=== PATIENT | female | born 1955 | race Caucasian/White ===

== ENCOUNTER 2017-04-20 07:46 | Inpatient (IN) | payer BC ==
[2017-04-20 08:21] LABS: #Eosinphils 0.4 thou/uL (0.0-0.7); #Lymphocytes 2.1 thou/uL (1.20-3.40); #Monocytes 1.1 thou/uL (0.11-0.59); %Basophils 0.4 % (0.0-1.0); %Eosinophils 3.3 % (0.0-10.0); %Lymphocytes 17.9 % (21.0-51.0); %Monocytes 9.1 % (0.0-10.0); Hematocrit 44.4 % (36.0-47.0); Mean Platelet Volume 8.2 fL (7.4-10.4); White Blood Cell (WBC) Count 11.5 thou/uL (4.8-10.8)
[2017-04-20 08:36] LABS: Bilirubin Negative (Negative); Blood, Urine Negative (Negative); Glucose, Urine (Dipstick) >=1000 mg/dL (Negative); Ketone, Urine 40 mg/dL (Negative); Nitrite Negative (Negative); Protein, Urine (Dipstick) Negative (Neg-Trace); Urobilinogen 0.2 mg/dL (0.2-1.0)
[2017-04-20 08:41] LABS: Troponin I Less than 0.010 ng/mL (< 0.028)
[2017-04-20 08:42] LABS: ALT (SGPT) 15 U/L (8-55); AST (SGOT) 14 U/L (5-34); Alkaline Phosphatase 103 U/L (40-150); Anion Gap 23 mmol/L (10-20); BUN (Urea Nitrogen) 21 mg/dL (9.8-20.1); Bilirubin, Total 0.8 mg/dL (0.2-1.2); Calc. Creatinine Clearance 0 mL/min (70-130); Calcium 10.2 mg/dL (7.8-10.44); Carbon Dioxide 20 mmol/L (23-31); Chloride 95 mmol/L (98-107); Estimated GFR-MDRD 49; Globulin 3.3 g/dL (2.4-3.5); Protein, Total 7.4 g/dL (6.0-8.3)
[2017-04-20] MEDS ORDERED: Insulin Regular 300 UNITS/3 ML VIAL ONE (08:58)
[2017-04-20] MEDS ORDERED: Acetaminophen 325 MG TAB PO PRN (09:26)
[2017-04-20] MEDS ORDERED: Bisacodyl 5 MG TAB PO PRN (09:26)
[2017-04-20] MEDS ORDERED: Acetaminophen 650 MG Suppository PR PRN (09:26)
[2017-04-20] MEDS ORDERED: NS 0.9% w/ 20 MEQ KCL 1,000 ML IV PRN ×2 (09:26)
[2017-04-20] MEDS ORDERED: Zolpidem Tartrate 5 MG TAB PO PRN ×2 (09:26→14:07)
[2017-04-20] MEDS ORDERED: CCU Electrolyte Replacement 1 EACH IVPB ONE (09:26)
[2017-04-20] MEDS ORDERED: D5 1/2 NS w/20 mEq KCL 1,000 ML IV PRN (09:26)
[2017-04-20] MEDS ORDERED: Dextrose 5 %-0.45 % NaCl 1,000 ML IV PRN (09:26)
[2017-04-20] MEDS ORDERED: Sodium Chloride 0.9% 1,000 ML IV PRN ×4 (09:26)
[2017-04-20] MEDS ORDERED: Potassium Phosphate 9 MMOL in Sodium Chloride 0.9% 100 ML IVPB PRN (09:32)
[2017-04-20] MEDS ORDERED: CCU ELECTROLYTE REPLACEMENT PROTOCOL FS PRN (09:32)
[2017-04-20] MEDS ORDERED: Potassium Phosphate 12 MMOL in Sodium Chloride 0.9% 250 ML 250 ML IV PRN (09:32)
[2017-04-20] MEDS ORDERED: Magnesium Oxide 400 MG TAB PO PRN ×2 (09:32)
[2017-04-20] MEDS ORDERED: Potassium Phosphate 15 MMOL in Sodium Chloride 0.9% 250 ML 250 ML IV PRN (09:32)
[2017-04-20] MEDS ORDERED: Potassium Chloride 40 MEQ in Sodium Chloride 0.9% 250 ML 250 ML IVPB PRN (09:32)
[2017-04-20] MEDS ORDERED: Potassium Chloride 20 MEQ TAB PO PRN (09:32)
[2017-04-20] MEDS ORDERED: Magnesium 2 GM/NS 0.9% 100 ML 2 GM in Premix Bag 1 BAG IVPB PRN (09:32)
[2017-04-20] MEDS ORDERED: Potassium Chloride 40 MEQ in Premix Bag 1 BAG IVPB PRN (09:32)
[2017-04-20 11:38] LABS: Troponin I Less than 0.010 ng/mL (< 0.028)
[2017-04-20 12:00] LABS: Anion Gap 23 mmol/L (10-20); BUN (Urea Nitrogen) 20 mg/dL (9.8-20.1); Calc. Creatinine Clearance 0 mL/min (70-130); Calcium 9.7 mg/dL (7.8-10.44); Carbon Dioxide 20 mmol/L (23-31); Chloride 96 mmol/L (98-107); Estimated GFR-MDRD 48
[2017-04-20] MEDS ORDERED: Dextrose 50% Abboject 50 ML SYRINGE ONE (13:05)
--- NOTE | 2017-04-20 13:33 | HP ---
PRIMARY CARE PHYSICIAN: Dr. Michael Green. CHIEF COMPLAINT: Chest pain. HISTORY OF PRESENT ILLNESS: Ms. Llamas is a pleasant 62-year-old lady who was seen at [facility] on 04/20/2017. She has a history of diabetes mellitus type 2 and uses an insulin pump. She reports that she has bee n using the insulin pump for several years, and her blood sugars are usually well controlled at home. Today morning, she was driving to work when she felt diaphoretic and tremulous. She also reports p ain across her upper chest. She describes it as sensation of tightness, nonradiating, 9/10 at its wo rst, lasted 30 minutes. No known aggravating or relieving factors. She reports that it was accompan ied by nausea and diaphoresis. She denies any lightheadedness. She also reports that her lips felt numb, but this has resolved. Currently, chest pain has resolved as well. She checked her blood sugars when she developed the symptoms and found that it was high, in the 550s. REVIEW OF SYSTEMS: The following complete review of systems was negative, unless otherwise mentioned in the HPI or below: Constitutional: Weight loss or gain, sense of well-being, ability to conduct usual activities, exerc ise tolerance. Skin/Breast: Rash, itching, changes in hair growth or loss, nail changes, breast lumps, tenderness, swelling, nipple discharge. Eyes: Vision, double vision, tearing, blind spots, pain. ENT/Mouth: Headaches (location, time of onset, duration, precipitating factors), vertigo, lightheade dness, injury. Vision, double vision, tearing, blind spots, pain, nose bleeding, colds, obstruction, discharge, dental difficulties, gingival bleeding, dentures, neck stiffness, pain, tenderness, dong s in thyroid or other areas. Cardiovascular: Precordial pain, substernal distress, palpitations, syncope, dyspnea on exertion, or thopnea, nocturnal paroxysmal dyspnea, edema, cyanosis, hypertension, heart murmurs, varicosities, ph lebitis, claudication. Respiratory: Pain, shortness of breath, wheezing, stridor, cough, hemoptysis, fever or night sweats. Gastrointestinal: Poor appetite, dysphagia, indigestion, abdominal pain, heartburn, eructation, naus ea, vomiting, hematemesis, jaundice, constipation, or diarrhea, abnormal stools (surjit-colored, tarry, bloody, greasy, foul smelling), flatulence, hemorrhoids, recent changes in bowel habits. Genitourinary: Urgency, frequency, dysuria, nocturia, hematuria, polyuria, oliguria, unusual (or devin nge in) color of urine, stones, hesitancy, change in size of stream, dribbling, acute retention or in continence, libido, potency. Musculoskeletal: Pain, swelling, redness or heat of muscles or joints, limitation, of motion, muscul ar weakness, atrophy, cramps. Neurologic/Psychiatric: Convulsions, paralyses, tremor, incoordination, paresthesias, difficulties w ith memory of speech, sensory or motor disturbances, or muscular coordination (ataxia, tremor), emoti onal problems, anxiety, depression, previous psychiatric care, unusual perceptions, hallucinations. Allergy/Immunologic: Skin rash, anemia, bleeding tendency, polydipsia, polyuria, intolerance to heat or cold. PAST MEDICAL HISTORY: Significant for diabetes mellitus type 2, peripheral vascular disease, and rig ht leg deep vein thrombosis. PAST SURGICAL HISTORY: Significant for a rectocele repair, insulin pump placement, appendectomy, hys terectomy, and tonsillectomy. PSYCHIATRIC HISTORY: None. SOCIAL HISTORY: Occasional alcohol use, patient denies tobacco use or recreational drug use. FAMILY HISTORY: No family history of premature coronary artery disease. She does report that her mo ther had heart disease. ALLERGIES: No known allergies. CURRENT MEDICATIONS: Include leflunomide 20 mg daily, metformin 500 mg 2 times a day, folic acid 2 m g daily, Pristiq 50 mg daily, Invokana 300 mg daily, baclofen 10 mg daily, duloxetine 30 mg daily, Jennifer nesta 3 mg at bedtime as needed, Lastacaft eyedrops, and Nexium 20 mg daily. PHYSICAL EXAMINATION: GENERAL: Ms. Llamas is awake and alert, not in acute distress. VITAL SIGNS: Blood pressure is 129/63, pulse is 98. She is breathing at rate of 20 and saturating 9 7% on room air. She is afebrile. EYES: No scleral icterus, no conjunctival pallor. ENT: Dry mucosal membranes, no oropharyngeal erythema or exudate. NECK: Supple, nontender, normal range of movement. Trachea is midline. RESPIRATORY: Accessory muscles of breathing are not active. Chest wall movements are symmetric bila terally. LUNGS: Clear to auscultation without wheeze, rhonchi, or crepitations. CARDIOVASCULAR: S1 and S2 are heard, regular. Peripheral pulses are palpable. No carotid bruit, no pericardial rub. ABDOMEN: Soft, nontender, bowel sounds are heard, no hepatomegaly, no splenomegaly. NEUROLOGIC: Cranial nerves II-XII are intact. Deep tendon reflexes are 2+. MUSCULOSKELETAL: Power is 5/5 in all 4 extremities. Normal range of movement at all major extremity joints. SKIN: No rashes or subcutaneous nodules. LYMPHATIC: No cervical lymphadenopathy. PSYCHIATRIC: Normal mood, normal affect, patient is oriented to person, place, and time. LABORATORY DATA: Ms. Llamas labs and investigations were reviewed. I reviewed her electrocardiogram, which shows normal sinus rhythm, no ST changes to suggest an acute coronary syndrome. I also review ed her chest x-ray, which does not reveal any pulmonary infiltrates. Laboratory investigation showed leukocytosis with 11,500 white cells, of which 69.4% are neutrophils, normal hemoglobin, normal plat elet count, hyponatremia with sodium of 133, hyperkalemia with potassium of 5.4, elevated creatinine of 1.11, elevated anion gap of 23, decreased carbon dioxide level of 20, and an unremarkable liver pr ofile. Troponin I is negative x2. Urinalysis is positive for glucose and ketones. She has an eleva hernán beta hydroxybutyrate level of 2.85. ASSESSMENT AND PLAN: Mr. Llamas is a pleasant 62-year-old lady who was seen at [facility] on 04/20/2017. Her problem list includes: 1. Diabetic ketoacidosis. Ms. Llamas is presenting with diabetic ketoacidosis. She will be admitted to the IM and treated with intravenous fluids and insulin per protocol. The etiology of DKA is un clear. She reports having some sinus infections in the past, over the last 3 months that could be a possible trigger. She certainly does not have any evidence of urinary tract infection or respiratory infection. 2. Chest pain: She does have significant cardiac risk factors. We will order stress test to rule o ut cardiac causes of reason for her chest pain. 3. Peripheral vascular disease: Stable, continue home medications. 4. Hyponatremia: Mild, recheck labs. 5. Hyperkalemia: Likely due to diabetic ketoacidosis. Monitor potassium levels. No EKG evidence o f hyperkalemia. 6. Acute kidney injury: Likely due to diabetic ketoacidosis, recheck creatinine level. Many thanks for allowing me to participate in Ms. Farhad vizcaino. Please feel free to contact me with an y questions or concerns. LEVEL OF RISK: High. LEVEL OF COMPLEXITY: High.
[2017-04-20 14:41] LABS: Anion Gap 14 mmol/L (10-20); BUN (Urea Nitrogen) 16 mg/dL (9.8-20.1); Calc. Creatinine Clearance 0 mL/min (70-130); Calcium 9.1 mg/dL (7.8-10.44); Carbon Dioxide 25 mmol/L (23-31); Chloride 106 mmol/L (98-107); Estimated GFR-MDRD 77
[2017-04-20 14:49] LABS: Troponin I Less than 0.010 ng/mL (< 0.028)
[2017-04-20 15:00] VITALS: BMI 29.3
[2017-04-20 20:05] LABS: Anion Gap 10 mmol/L (10-20); BUN (Urea Nitrogen) 19 mg/dL (9.8-20.1); Calc. Creatinine Clearance 102 mL/min (70-130); Carbon Dioxide 29 mmol/L (23-31); Chloride 105 mmol/L (98-107); Estimated GFR-MDRD 75
[2017-04-20] MEDS ORDERED: Atorvastatin Calcium 10 MG TAB PO SCH (21:00)
[2017-04-21 04:57] LABS: #Basophils 0.1 thou/uL (0.0-0.2); #Eosinphils 0.3 thou/uL (0.0-0.7); #Lymphocytes 2.1 thou/uL (1.20-3.40); #Monocytes 0.8 thou/uL (0.11-0.59); #Neutrophils 4.7 thou/uL (1.40-6.50); %Basophils 0.7 % (0.0-1.0); %Lymphocytes 26.4 % (21.0-51.0); %Monocytes 9.9 % (0.0-10.0); Hematocrit 36.6 % (36.0-47.0); Mean Platelet Volume 6.8 fL (7.4-10.4); Red Blood Cell (RBC) Count 3.64 mill/uL (4.20-5.40); White Blood Cell (WBC) Count 7.9 thou/uL (4.8-10.8)
[2017-04-21 05:07] LABS: Anion Gap 10 mmol/L (10-20); BUN (Urea Nitrogen) 14 mg/dL (9.8-20.1); Calc. Creatinine Clearance 125 mL/min (70-130); Calcium 8.7 mg/dL (7.8-10.44); Carbon Dioxide 25 mmol/L (23-31); Chloride 110 mmol/L (98-107); Estimated GFR-MDRD Greater than 90
[2017-04-21] MEDS ORDERED: Dextrose 50% Abboject 50 ML SYRINGE IVP PRN (05:13)
[2017-04-21] MEDS ORDERED: Dextrose 5% in Water 1,000 ML IV PRN (05:13)
[2017-04-21] MEDS ORDERED: Levothyroxine Sodium 125 MCG TAB PO SCH (06:00)
[2017-04-21] MEDS ORDERED: Leflunomide 10 mg Tablet PO SCH (09:00)
[2017-04-21] MEDS ORDERED: Folic Acid 1 MG TAB PO SCH (09:00)
[2017-04-21] MEDS ORDERED: Amlodipine 5 MG TAB PO SCH (09:00)
[2017-04-21] MEDS ORDERED: Venlafaxine XR 37.5 MG CAP PO SCH (09:00)
[2017-04-21] MEDS ORDERED: Enoxaparin Sodium 40 MG/0.4 ML SYRINGE SC SCH (09:00)
[2017-04-21] MEDS ORDERED: Valsartan 80 MG TAB PO SCH (09:00)
--- NOTE | 2017-04-21 10:27 | NM ---
NUCLEAR MEDICINE CARDIAC SPECT WITH EF AND WALL MOTION: HISTORY: A 62-year-old female with chest pain. History of peripherovascular disease, diabetes mellitus, and D VT. Adenosine sestamibi study was performed. The patient was injected with 30 mCi Technetium 99m sestamibi intravenously for stress imaging and th e patient was injected with 28.0 mCi Technetium 99m sestamibi intravenously for resting images. Multiple SPECT images in the short axis, vertical long axis, and horizontal long axis demonstrate no scan evidence for infarct or ischemia. TID 1.06. LHR 0.34. EDV 92 mL. EF is 75%. MYOCARDIAL PERFUSION WALL MOTION: Wall motion is normal. IMPRESSION: Unremarkable cardiac SPECT with ejection fraction and wall motion. POS: [facility]
[2017-04-21] MEDS ORDERED: ISOVUE-370 76%-LOCM 1 ML ONE (13:57)
[2017-04-21] MEDS ORDERED: Baclofen 10 MG TAB PO PRN (14:37)
[2017-04-21] MEDS ORDERED: ESTRADIOL 0.1 MG/24 HR TD SCH (16:00)
[2017-04-21] MEDS ORDERED: Zolpidem Tartrate 5 MG TAB PO PRN (16:11)
[2017-04-21] MEDS ORDERED: ADENOSINE 60 MG/20 ML VIAL ONE (17:09)
[2017-04-21 18:01] VITALS: BP 133/58; TEMP 97.8
--- NOTE | 2017-04-21 18:52 | CT ---
HISTORY: Chest tightness, chest pain, difficulty breathing. Contrast enhanced CTA of the chest is performed. 2D and 3D reconstructed images performed on an [employer] 3D workstation. Images demonstrate coronary artery calcifications. There is calcification also seen in the aorta. No evidence of definite pulmonary artery parenchymal lesions seen. No evidence of filling defects see n in the pulmonary arteries to suggest pulmonary emboli. No evidence of pleural or pericardial effusions seen. There is an area of hypodensity measuring approximately 2.6 cm in the spleen, compatible with a splen ic cyst. Numerous healed left sided upper rib fractures are present. IMPRESSION: 1. Coronary artery calcification. 2. No evidence of pulmonary emboli. POS: [facility]
--- NOTE | 2017-04-21 23:59 | DIS ---
DATE OF ADMISSION: 04/20/2017 DATE OF DISCHARGE: 04/21/2017 PRIMARY CARE PHYSICIAN: Dr. Michael Green. DISCHARGE DIAGNOSES: 1. Diabetic ketoacidosis. 2. Chest pain, resolved. CONDITION OF PATIENT AT THE TIME OF DISCHARGE: Stable. I assessed Ms. Llamas on the day of discharge . She denies any chest pain or shortness of breath. Her vital signs are stable. S1 and S2 are hear d, regular. Lungs are clear to auscultation bilaterally. DISCHARGE MEDICATIONS: She is advised to hold metformin for 48 hours since she received contrast for CT angiogram of the chest. Her discharge medications include Lastacaf 3 mL daily, baclofen 10 mg as needed, Invokana 300 mg daily, Pristiq 25 mg daily, estradiol 0.1 mg transdermal twice weekly, Lunes ta 3 mg at bedtime, folic acid 2 mg daily, leflunomide 20 mg daily, Synthroid 150 mcg daily, liothyro nine sodium 5 mcg daily, Diovan 160 mg daily, metformin to be started on 04/24/2017 and patient to co ntinue with her use of insulin pump. HOSPITAL COURSE: Ms. Llamas is a pleasant 62-year-old lady who was admitted to [facility] on 04/20/2017 for diabetic ketoacidosis as well as chest discomfort. Diabetic ketoacidos is, resolved on 04/20/2017 with intravenous insulin and intravenous fluids. She had nuclear stress t est, which was unremarkable with an ejection fraction of 75% and normal wall motion. She had a mildly elevated D-dimer. CT angiogram of the chest did not reveal any pulmonary embolism. She had old healed fractures as well as her splenic cyst. She is advised to follow up with her primary care provider in 3-5 days. On the day of discharge, she has a white count of 7900, hemoglobin 11.8 and platelet count 242,000. Sodium 141, potassium 3.8 and creatinine 0.63. Many thanks for allowing me to participate in your patient's care. Please feel free to contact me wi th any questions or concerns. DISCHARGE DESTINATION: Home. TOTAL AMOUNT OF TIME SPENT COORDINATING THIS DISCHARGE: 33 minutes.
[2017-04-22] MEDS ORDERED: Canagliflozin [Invokana] 300 MG PO SCH ×3 (06:00)
[2017-04-22] MEDS ORDERED: Liothyronine Sodium 5 MCG TAB PO SCH (06:00)
[2017-04-22] MEDS ORDERED: Valsartan 80 MG TAB PO SCH (09:00)
[2017-04-22] MEDS ORDERED: ALCAFTADINE EA EYE SCH (09:00)
--- NOTE | 2017-05-05 10:26 | STRESS ---
Acquisition Time: 2017-04-21 08:34:50 Total Exercise Time: 00:04:00 Test Indications: CHEST PAIN Medications: Protocol: ADENOSINE Max HR: 093 BPM 59% of Pred: 156 BPM Max BP: 120/054 mmHG Max Work Load: 1.0 METS RESTING ECG: NORMAL SINUS RHYTHM AT 68 BPM SYMPTOMS: CHEST PAIN, SHORTNESS OF BREATH, JAW PAIN NORMAL BP RESPONSE ECTOPY: RARE PVC'S ECG STRESS: NO SIGNIFICANT CHANGES INTERPRETATION: AWAIT NUCLEAR IMAGES FOR DEFINITIVE DIAGNOSIS Confirmed by KEELY XIAO ([id number]), assistant production editor CAMILLA FAROOQ ([id number]) on 05/05/2017 10:25:55 AM Referred By: MD Brittny YOUNG Confirmed By:KEELY XIAO
--- NOTE | 2017-05-09 17:03 | EKG ---
Test Reason : CHEST PAIN Blood Pressure : / mmHG Vent. Rate : 100 BPM Atrial Rate : 100 BPM P-R Int : 162 ms QRS Dur : 076 ms QT Int : 334 ms P-R-T Axes : 066 006 063 degrees QTc Int : 430 ms Normal sinus rhythm Possible Left atrial enlargement Borderline ECG Confirmed by IVELISSE PARKER ([id number]), content editor JOVANA LYNN ([id number]) on 05/09/2017 5:03:40 PM Referred By: Confirmed By:IVELISSE PARKER
== END 2017-04-21 18:12 | disposition home or self-care (01) | DRG 638 ==
LOC: ERS 07:46 → IMCU/EMU 09:18
PROVIDERS: ADMIT Internal Medicine; ATTEND Internal Medicine
PROC: 4A02XM4 Measurement of Cardiac Total Activity, External Approach (ICD-10-PCS; principal; 2017-04-21)
DX: E11.10 Type 2 diabetes mellitus with ketoacidosis without coma (principal); E87.1 Hypo-osmolality and hyponatremia; N17.9 Acute kidney failure, unspecified; I73.9 Peripheral vascular disease, unspecified; E87.5 Hyperkalemia; Z86.718 Personal history of other venous thrombosis and embolism; Z96.41 Presence of insulin pump (external) (internal); Z87.81 Personal history of (healed) traumatic fracture
CPT/HCPCS: 36415; 36416; 71275; 78452; 80048; 80053; 81003; 82010; 82553; 84484; 85025; 85379; 93005; 93017; 94760; 96361; 96374; 96375; A9500; J0153; J1815

== ENCOUNTER 2017-05-13 07:15 | Outpatient (CLI) | payer BC | END 2017-05-13 07:16 | disposition home or self-care (01) | LOC: BICMAMMO 07:15 | PROVIDERS: ATTEND Obstetrics & Gynecology | DX: Z12.31 Encounter for screening mammogram for malignant neoplasm of breast (principal) | CPT/HCPCS: 77063; 77067; G0202 ==

== ENCOUNTER 2018-05-22 06:04 | Emergency (ER) | payer MEDICARE ==
[2018-05-22] MEDS ORDERED: Ondansetron PF 4 MG/2 ML Vial ONE ×2 (06:33→07:17)
[2018-05-22 06:41] LABS: #Basophils 0.1 thou/uL (0.0-0.2); #Eosinphils 0.1 thou/uL (0.0-0.7); #Lymphocytes 1.5 thou/uL (1.20-3.40); #Monocytes 0.5 thou/uL (0.11-0.59); #Neutrophils 5.4 thou/uL (1.40-6.50); %Basophils 0.8 % (0.0-1.0); %Eosinophils 0.8 % (0.0-10.0); %Lymphocytes 20.2 % (21.0-51.0); %Monocytes 6.1 % (0.0-10.0); Hemoglobin 15.3 g/dL (12.0-16.0); Mean Corpuscular HGB CONC 31.3 g/dL (32.0-36.0); Mean Corpuscular Hemoglobin 30.1 pg (27.0-31.0); Mean Corpuscular Volume 96.1 fL (78.0-98.0); Mean Platelet Volume 7.4 fL (7.4-10.4); Platelet Count 285 thou/uL (130-400); RBC Distribution Width 12.6 % (11.5-14.5); Red Blood Cell (RBC) Count 5.07 mill/uL (4.20-5.40); White Blood Cell (WBC) Count 7.4 thou/uL (4.8-10.8)
[2018-05-22] MEDS ORDERED: Morphine 4 MG/ML VIAL ONE (06:48)
[2018-05-22 07:02] LABS: ALT (SGPT) 10 U/L (8-55); AST (SGOT) 14 U/L (5-34); Albumin 4.3 g/dL (3.4-4.8); Alkaline Phosphatase 77 U/L (40-150); Anion Gap 17 mmol/L (10-20); BUN (Urea Nitrogen) 11 mg/dL (9.8-20.1); Bilirubin, Total 0.7 mg/dL (0.2-1.2); Calc. Creatinine Clearance 0 mL/min (70-130); Calcium 10.3 mg/dL (7.8-10.44); Carbon Dioxide 21 mmol/L (23-31); Chloride 105 mmol/L (98-107); Estimated GFR-MDRD 83; Globulin 3.1 g/dL (2.4-3.5); Glucose 122 mg/dL (80-115); Lipase 20 U/L (8-78); Potassium 4.1 mmol/L (3.5-5.1); Protein, Total 7.4 g/dL (6.0-8.3); Sodium 139 mmol/L (136-145)
--- NOTE | 2018-05-22 09:36 | CT ---
CT ABDOMEN AND PELVIS WITH IV CONTRAST: Date: 05/22/18 HISTORY: Abdominal pain, vomiting. FINDINGS: There is a calcified granuloma at the right lung base. A small hiatal hernia is noted. The liver, spl een, pancreas, adrenal glands, and left kidney are normal. There is a 1.8 cm cyst in the right kidney . No calcified gallstones are seen. No free air, free fluid, or lymphadenopathy noted in the abdomen or pelvis. There are vascular calcifications without evidence of aneurysmal dilatation of the abdomin al aorta. There are degenerative changes in the spine. There is compression of L2 vertebral body. The re is levoscoliosis of the lumbar spine. The small bowel loops are not abnormally dilated. There is f ecal material in the colon. There is sigmoid diverticulosis without evidence of diverticulitis. IMPRESSION: 1. No acute process. 2. Small hiatal hernia. 3. Right renal cyst. 4. Sigmoid diverticulosis. 5. No evidence of small bowel obstruction. Discussed over the telephone with ER physician, Dr. Melissa Carbajal, at 0811 hours. CODE CR. POS: [facility]
--- NOTE | 2018-05-22 09:37 | RAD ---
PORTABLE CHEST ONE VIEW: 05/22/2018 6:44 a.m. HISTORY: Nausea and vomiting. COMPARISON: 05/05/2015 FINDINGS: The heart size is normal. The lungs are well expanded without focal areas of consolidation, pneumoth orax, or pleural effusions. There are postop changes and metallic hardware in the lower cervical spi ne. IMPRESSION: No acute process. POS: [facility]
== END 2018-05-22 09:13 | disposition home or self-care (01) ==
LOC: ERS 06:04
DX: R11.2 Nausea with vomiting, unspecified (principal); E11.9 Type 2 diabetes mellitus without complications; Z86.718 Personal history of other venous thrombosis and embolism; Z87.891 Personal history of nicotine dependence; Z79.899 Other long term (current) drug therapy; Z79.4 Long term (current) use of insulin
CPT/HCPCS: 71045; 74177; 80053; 82010; 83690; 84484; 85025; 93005; 96361; 96374; 96375; 96376; J2270; J2405

== ENCOUNTER 2018-05-28 07:03 | Outpatient (CLI) | payer MEDICARE, OTHER ==
--- NOTE | 2018-05-28 10:01 | ULT ---
ABDOMINAL ULTRASOUND: HISTORY: Abdominal pain. Nausea. FINDINGS: Real-time imaging of the upper abdomen shows a fairly normal appearing gallbladder. Questionable min imal sludge. No stones. No gallbladder wall thickening. The common duct is 5 mm. The liver measures 16 cm in length. No focal abnormalities. The spleen is 9 cm. The pancreas is obscured. Right and left kidneys are normal in size and not obstructed. There is a 1.5 cm right renal cyst incidentally noted. IMPRESSION: Small right renal cyst. Otherwise unremarkable examination. POS: [facility]
--- NOTE | 2018-05-28 15:15 | NM ---
NUCLEAR MEDICINE GASTRIC EMPTYING WITH MEAL: HISTORY: Nausea and vomiting, unspecified. COMPARISON: None. FINDINGS: The patient was given 2.1 mCi Technetium 99m sulfur colloid orally in egg. There is 45% emptying at 30 minutes, 75% emptying at 1 hour, and 96% emptying at 2 hours. There is 97% emptying at 3 hours an d 100% at 4 hours. IMPRESSION: No delayed gastric emptying. POS: [facility]
== END 2018-05-28 07:04 | disposition home or self-care (01) ==
LOC: ULT 07:03
DX: R11.2 Nausea with vomiting, unspecified (principal); R10.13 Epigastric pain; N28.1 Cyst of kidney, acquired
CPT/HCPCS: 76700; 78264; A9541

== ENCOUNTER 2020-02-17 09:22 | Outpatient (CLI) | payer MEDICARE ==
--- NOTE | 2020-02-17 10:09 | BD ---
EXAM: DEXA bone density examination HISTORY: 65-year-old postmenopausal female for screening COMPARISON: None FINDINGS: L1--bone mineral density 1.068 g/sq cm; T score 0.7 L2--bone mineral density 1.247 g/sq cm; T score 2.0 L3--bone mineral density 1.222 g/sq cm; T score 1.3 L4--bone mineral density 1.275 g/sq cm; T score 1.9 Total L1-L4--bone mineral density 1.205 g/sq cm; T score 1.4 Left femoral neck--bone mineral density0.638; T score -1.9 Total proximal left femur--bone mineral density 0.879; T score -0.5 IMPRESSION: Osteopenia. This patient has a 10 year WHO fracture risk of a major osteoporotic fracture of 13% and of a hip fracture of 2.0%.
== END 2020-02-17 09:23 | disposition home or self-care (01) ==
LOC: BICMAMMO 09:22
PROVIDERS: ATTEND Internal Medicine Rheumatology
DX: M81.0 Age-related osteoporosis without current pathological fracture (principal); M85.852 Other specified disorders of bone density and structure, left thigh
CPT/HCPCS: 77080

== ENCOUNTER 2020-03-18 02:37 | Inpatient (IN) | payer MEDICARE, OTHER ==
[2020-03-18] MEDS ORDERED: Ondansetron ODT 4 MG TAB ONE (02:40)
[2020-03-18] MEDS ORDERED: Ondansetron PF 4 MG/2 ML Vial ONE (02:40)
[2020-03-18] MEDS ORDERED: INSULIN REGULAR IN 0.9 % NACL 100 UNIT/100 ML BAG ONE (02:56)
[2020-03-18] MEDS ORDERED: Dextrose 5 %-0.45 % NaCl 1,000 ML IV PRN (03:12)
[2020-03-18] MEDS ORDERED: NS 0.9% w/ 20 MEQ KCL 1,000 ML IV PRN ×2 (03:12)
[2020-03-18] MEDS ORDERED: D5 1/2 NS w/20 mEq KCL 1,000 ML IV PRN (03:12)
[2020-03-18] MEDS ORDERED: Sodium Chloride 0.9% 1,000 ML IV PRN ×3 (03:12)
[2020-03-18] MEDS ORDERED: HUMULIN R 100 UNITS in Sodium Chloride 0.9% 100 ML IVPB SCH (03:15)
--- NOTE | 2020-03-18 03:21 | PDOC.HHP ---
Hospitalist HPI - History of Present Illness Abdominal pain History of Present Illness: 65-year-old woman with a history of type 1 diabetes, history of deep vein thrombosis, hypertension gastric ulcers presented to the emergency department at [facility] with a complaint of abdominal pain and high blood sugar. Patient is on insulin pump. She mentioned she given several boluses of insulin but still could not feel better and therefore presented to the ED. Patient was found to be in DKA at [facility] ED. Her pH was 7.2. Patient noted to have ketonuria of 3+. Her white cell count was also elevated and UA suggestive of the presence of UTI. Her insulin pump was discontinued, patient was given boluses of normal saline and started on insulin drip. She was also given a shot of IV Rocephin and transferred here for further management. Patient found to be lethargic in the ED, could hardly speak. She was complaining of nausea and stated she vomited multiple times. DKA protocol initiated in the ED. Patient is admitted to the CCU for further management. Hospitalist ROS - Review of Systems Other: Patient was complaining of abdominal pain. She denied any diarrhea. He denied any chest pain. Except as documented, all other systems reviewed and negative. - Medication Medications: Medication Instructions Recorded Confirmed Type Baclofen 10 mg PO ASDIR PRN 04/23/15 04/20/17 History Canagliflozin [Invokana] 300 mg PO QAM 04/23/15 04/20/17 History Desvenlafaxine Succinate [Pristiq] 25 mg PO QAM 04/23/15 04/20/17 History Estradiol [Vaishnavi] 0.1 mg TD .2X'S/WEEK 04/23/15 04/20/17 History Folic Acid [Folvite] 2 tab PO DAILY 04/23/15 04/20/17 History Leflunomide [Arava] 20 mg PO DAILY 04/23/15 04/20/17 History Levothyroxine Sodium [Synthroid] 150 mcg PO DAILY 04/23/15 04/20/17 History Alcaftadine [Lastacaft] 3 ml OP DAILY 04/20/17 04/20/17 History Eszopiclone [Lunesta] 3 mg PO HS 04/20/17 04/20/17 History Liothyronine Sodium 5 mcg PO DAILY 04/20/17 04/20/17 History Valsartan [Diovan] 160 mg PO DAILY 04/20/17 04/20/17 History Hospitalist History - Past Medical History Other Medical History: History of insulin-dependent diabetes, hyperlipidemia, history of DVT, gastroesophageal reflux, gastric ulcers, rectal prolapse, rheumatoid arthritis, compression fractures. - Past Surgical History Other Surgical History: Appendectomy, hiatal hernia surgery, hysterectomy, tonsillectomy. - Family History Family History: reports: diabetes mellitus - Social History Smoking Status: Former smoker Alcohol: reports: Occassional Drugs: reports: none - Exam General - other findings: Lethargic. Eye: PERRL, anicteric sclera ENT: normocephalic atraumatic, no oropharyngeal lesions, dry oral mucosa Neck: supple, symmetric, no JVD, no thyromegaly Heart: RRR (Tachycardic), no murmur, no gallops Respiratory: CTAB, no wheezes, no rales Gastrointestinal: soft, non-tender, normal bowel sounds Extremities: no cyanosis, no edema Skin: normal turgor, no rashes Neurological: cranial nerve grossly intact, no weakness, no focal deficits Musculoskeletal: normal tone, normal strength Psychiatric: normal affect, oriented to person, oriented to place Hospitalist Results - Labs Result Diagrams: 03/18/20 03:28 Lab results: WBC 18.2, hemoglobin 13.5 Sodium 150, potassium 5.3 bicarb 15 calcium 10.5 BUN 25 creatinine 0.6 pH 7.298 Urinalysis positive for nitrite ketones. COVID-19 negative Troponin negative. - Radiology Interpretation CT scan - abdomen Status: image reviewed by me, report reviewed by me (Diverticulosis of colon, L2 superior endplate compression deformity with 40% loss of vertebral body height.) Hospitalist H&P A/P - Problem (1) DKA (diabetic ketoacidoses) Code(s): E11.10 - TYPE 2 DIABETES MELLITUS WITH KETOACIDOSIS WITHOUT COMA Status: Acute (2) Hypernatremia Code(s): E87.0 - HYPEROSMOLALITY AND HYPERNATREMIA Status: Acute (3) UTI (urinary tract infection) Status: Acute (4) Metabolic encephalopathy Code(s): G93.41 - METABOLIC ENCEPHALOPATHY Status: Acute (5) Sepsis Code(s): A41.9 - SEPSIS, UNSPECIFIED ORGANISM Status: Acute - Plan Plan: Admit to CCU. Aggressive hydration with normal saline followed by D5 half-normal saline. D5 half-normal saline to help treat the hypernatremia. DKA protocol initiated with insulin drip. Start IV Rocephin for UTI Follow blood cultures and urine culture. Monitor BMP per DKA protocol, optimize electrolytes. Hold insulin pump. Patient is lethargic and confused so I cannot discuss advance care planning at this time.
[2020-03-18] MEDS ORDERED: Haloperidol Lactate 5 MG/ML VIAL ONE (03:57)
[2020-03-18 04:15] LABS: Anion Gap 21 mmol/L (10-20); BUN (Urea Nitrogen) 23 mg/dL (9.8-20.1); Calc. Creatinine Clearance 0 mL/min (70-130); Calcium 9.4 mg/dL (7.8-10.44); Carbon Dioxide 14 mmol/L (23-31); Chloride 109 mmol/L (98-107); Estimated GFR-MDRD 53; Glucose 279 mg/dL (80-115); Magnesium 2.4 mg/dL (1.6-2.6); Phosphorus 2.1 mg/dL (2.3-4.7); Potassium 4.1 mmol/L (3.5-5.1); Sodium 140 mmol/L (136-145)
[2020-03-18 05:38] VITALS: BMI 28.8
[2020-03-18] MEDS: cefTRIAXone\\ROCEPHIN 1 GM in Sodium Chloride 0.9% 100 ML IVPB SCH (05:55)
[2020-03-18] MEDS ORDERED: FLU VACC QS2020-21(65YR UP)/PF 240 MCG/0.7 ML SYRINGE IM ONE (06:45)
[2020-03-18 07:27] LABS: Anion Gap 16 mmol/L (10-20); BUN (Urea Nitrogen) 21 mg/dL (9.8-20.1); Calc. Creatinine Clearance 76 mL/min (70-130); Calcium 9.2 mg/dL (7.8-10.44); Carbon Dioxide 19 mmol/L (23-31); Chloride 112 mmol/L (98-107); Estimated GFR-MDRD 57; Glucose 236 mg/dL (80-115); Potassium 4.1 mmol/L (3.5-5.1); Sodium 143 mmol/L (136-145)
[2020-03-18 11:29] LABS: Anion Gap 13 mmol/L (10-20); BUN (Urea Nitrogen) 19 mg/dL (9.8-20.1); Calc. Creatinine Clearance 82 mL/min (70-130); Carbon Dioxide 20 mmol/L (23-31); Chloride 115 mmol/L (98-107); Estimated GFR-MDRD 62; Glucose 189 mg/dL (80-115); Potassium 4.2 mmol/L (3.5-5.1); Sodium 144 mmol/L (136-145)
[2020-03-18] MEDS ORDERED: Ondansetron PF 4 MG/2 ML Vial IVP PRN (12:17)
[2020-03-18] MEDS ORDERED: Insulin Glargine 15 UNITS in Pre-Filled Syringe 1 EACH SC SCH ×2 (12:32→14:15)
--- NOTE | 2020-03-18 12:37 | PDOC.HOSPP ---
- Subjective Encounter Date: 03/18/20 Encounter Time: 08:25 Subjective: lethargic, awakens easily says her throat is very dry no cough or nausea now - Objective Vital Signs & Weight: Vital Signs (12 hours) Temp Pulse Ox 03/18/20 12:00 98.4 F 03/18/20 07:02 100 03/18/20 07:00 98.7 F 03/18/20 05:10 100 Weight Admit Weight 189 lb 13.088 oz Weight 189 lb 13.088 oz Most Recent Monitor Data Heart Rate from ECG 101 NIBP 151/72 NIBP BP-Mean 98 Respiration from ECG 17 SpO2 100 I&O: 03/17/20 03/18/20 03/19/20 06:59 06:59 06:59 Intake Total 261.8 0 Output Total 120 1500 Balance 141.8 -1500 Result Diagrams: 03/18/20 11:00 Additional Labs: Accuchecks 03/18/20 03/18/20 03/18/20 11:01 09:00 06:37 POC Glucose 183 H 181 H 196 H 03/18/20 03/18/20 03/18/20 05:25 04:10 02:42 POC Glucose 221 H 233 H 277 H Hospitalist ROS - Medication Medications: Active Medications Generic Name Dose Route Start Last Admin Trade Name Freq PRN Reason Stop Dose Admin Potassium Chloride/Dextrose/Sod Cl 1,000 mls @ 250 mls/hr 03/18/20 03:12 03/18/20 08:31 D5 1/2 Ns W/20 Meq Kcl IV 1,000 mls .Q4H PRN Administration Step 4 of DKA Protocol Protocol Ceftriaxone Sodium 1 gm/ 100 mls @ 200 mls/hr 03/18/20 05:00 03/18/20 05:55 Sodium Chloride IVPB 100 mls Q24HR HAL Administration Ondansetron HCl 4 mg 03/18/20 12:17 03/18/20 12:28 Ondansetron Pf 4 Mg/2 Ml Vial IVP 4 mg Q4H PRN Administration Nausea/Vomiting Sodium Chloride 10 ml 03/18/20 09:00 03/18/20 08:54 Flush - Normal Saline 10 Ml Syringe IVF 10 ml Q12HR HAL Administration - Exam General Appearance: ill appearing Eye: anicteric sclera ENT: no oropharyngeal lesions, dry oral mucosa Neck: supple, no JVD Heart: RRR, no murmur Respiratory: no wheezes, no rales, rhonchi Gastrointestinal: soft, non-tender, non-distended, normal bowel sounds, no rigidity Extremities: no cyanosis, no edema Neurological: cranial nerve grossly intact, no focal deficits Psychiatric: A&O x 3 Hosp A/P (1) DKA (diabetic ketoacidoses) Code(s): E11.10 - TYPE 2 DIABETES MELLITUS WITH KETOACIDOSIS WITHOUT COMA Status: Resolved Qualifiers: Diabetes mellitus type: type 2 Diabetes mellitus complication detail: without coma Qualified Code(s): E11.10 - Type 2 diabetes mellitus with ketoacidosis without coma (2) Polypharmacy Code(s): Z79.899 - OTHER FDC (CURRENT) DRUG THERAPY Status: Chronic (3) Metabolic encephalopathy Code(s): G93.41 - METABOLIC ENCEPHALOPATHY Status: Resolved (4) Sepsis Code(s): A41.9 - SEPSIS, UNSPECIFIED ORGANISM Status: Suspected Qualifiers: Sepsis type: sepsis due to unspecified organism Sepsis acute organ dysfunction status: without acute organ dysfunction Qualified Code(s): A41.9 - Sepsis, unspecified organism (5) UTI (urinary tract infection) Status: Acute Qualifiers: Urinary tract infection type: acute cystitis Hematuria presence: without hematuria Qualified Code(s): N30.00 - Acute cystitis without hematuria - Plan continue ceftriaxone, await cultures gap is closing, dka is resolving continue iv fluids and home meds from tomorrow iv fluids oral diet hemostable may tx to medical floor if more awake and oriented
[2020-03-18 12:46] LABS: SARS-CoV-2 MS2 Positive; SARS-CoV-2 N Gene Negative; SARS-CoV-2 S Gene Negative; SARS-CoV-2 by NAA Not Detected (NotDetected); SARS-CoV-2 orf1ab Negative
[2020-03-18] MEDS ORDERED: Dextrose 50% Abboject 50 ML SYRINGE SLOW IVP PRN (12:47)
[2020-03-18] MEDS ORDERED: HumaLOG 300 UNITS/3 ML VIAL SC PRN (12:47)
[2020-03-18] MEDS ORDERED: Dextrose 5% in Water 1,000 ML IV PRN (12:47)
[2020-03-18] MEDS ORDERED: Morphine 2 MG/ML VIAL SLOW IVP PRN (16:42)
[2020-03-18] MEDS: HumaLOG 300 UNITS/3 ML VIAL SC PRN (17:25)
[2020-03-18] MEDS: Dicyclomine 20 MG TAB PO PRN (17:25)
[2020-03-18] MEDS: Acetaminophen 325 MG TAB PO PRN (22:40)
[2020-03-18] MEDS: Ondansetron PF 4 MG/2 ML Vial IVP PRN (22:40)
[2020-03-18] MEDS: Mag-Al Plus 1200 MG/1200 MG/120 MG/30 ML UDCUP PO PRN (22:44)
[2020-03-18] MEDS: Sodium Chloride 0.9% 1,000 ML IV SCH (22:46)
[2020-03-19] MEDS: Levothyroxine 150 MCG TAB PO SCH (05:16)
[2020-03-19] MEDS: cefTRIAXone\\ROCEPHIN 1 GM in Sodium Chloride 0.9% 100 ML IVPB SCH (05:16)
[2020-03-19] MEDS: HumaLOG 300 UNITS/3 ML VIAL SC PRN ×3 (05:17→17:27)
[2020-03-19 06:30] LABS: Anion Gap 21 mmol/L (10-20); BUN (Urea Nitrogen) 19 mg/dL (9.8-20.1); Calc. Creatinine Clearance 86 mL/min (70-130); Calcium 8.4 mg/dL (7.8-10.44); Carbon Dioxide 11 mmol/L (23-31); Chloride 105 mmol/L (98-107); Estimated GFR-MDRD 66; Glucose 225 mg/dL (80-115); Potassium 4.4 mmol/L (3.5-5.1); Sodium 133 mmol/L (136-145)
--- NOTE | 2020-03-19 09:21 | PDOC.HOSPP ---
- Objective Vital Signs & Weight: Vital Signs (12 hours) Temp Pulse Resp BP Pulse Ox 03/19/20 08:33 98.2 F 93 18 120/64 99 03/18/20 23:47 99.7 F H 103 H 20 146/76 H 97 Weight Admit Weight 189 lb 13.088 oz Weight 189 lb 13.088 oz Most Recent Monitor Data Heart Rate from ECG 97 NIBP 167/82 NIBP BP-Mean 110 Respiration from ECG 19 SpO2 100 I&O: 03/18/20 03/19/20 03/20/20 06:59 06:59 06:59 Intake Total 261.8 2292 Output Total 120 1800 Balance 141.8 492 Result Diagrams: 03/19/20 05:35 Additional Labs: Accuchecks 03/19/20 03/18/20 03/18/20 05:05 20:17 11:01 POC Glucose 224 H 170 H 183 H Hospitalist ROS - Medication Medications: Active Medications Generic Name Dose Route Start Last Admin Trade Name Freq PRN Reason Stop Dose Admin Acetaminophen 650 mg 03/18/20 15:32 03/18/20 22:40 Acetaminophen 325 Mg Tab PO 650 mg Q6H PRN Administration pain/fever Al Hydroxide/Mg Hydroxide 30 ml 03/18/20 16:41 03/18/20 22:44 Mag-Al Plus 1200 Mg/1200 Mg/120 Mg/30 Ml Udcup PO 30 ml Q6H PRN Administration Heartburn or Indigestion Dicyclomine HCl 20 mg 03/18/20 16:41 03/18/20 17:25 Dicyclomine 20 Mg Tab PO 20 mg QID PRN Administration abdominal pain Ceftriaxone Sodium 1 gm/ 100 mls @ 200 mls/hr 03/18/20 05:00 03/19/20 05:16 Sodium Chloride IVPB 100 mls Q24HR HAL Administration Sodium Chloride 1,000 mls @ 100 mls/hr 03/18/20 12:47 03/18/20 22:46 Normal Saline 0.9% IV 1,000 mls .Q10H HAL Administration Insulin Human Lispro 0 units 03/18/20 12:47 03/19/20 05:17 Humalog 300 Units/3 Ml Vial SC 4 units .MODERATE SLIDING SC PRN Administration Moderate Correctional Scale Levothyroxine Sodium 150 mcg 03/19/20 06:00 03/19/20 05:16 Levothyroxine 150 Mcg Tab PO 150 mcg 0600 HAL Administration Morphine Sulfate 2 mg 03/18/20 16:42 03/18/20 23:57 Morphine 2 Mg/Ml Vial SLOW IVP 2 mg Q4H PRN Administration Severe Pain (7-10) Ondansetron HCl 4 mg 03/18/20 16:41 03/18/20 22:40 Ondansetron Pf 4 Mg/2 Ml Vial IVP 4 mg Q6H PRN Administration Nausea/Vomiting Hosp A/P (1) Renal cyst Code(s): N28.1 - CYST OF KIDNEY, ACQUIRED Status: Acute (2) Diverticulosis Code(s): K57.90 - DVRTCLOS OF INTEST, PART UNSP, W/O PERF OR ABSCESS W/O BLEED Status: Acute (3) DKA (diabetic ketoacidoses) Code(s): E11.10 - TYPE 2 DIABETES MELLITUS WITH KETOACIDOSIS WITHOUT COMA Status: Resolved Qualifiers: Diabetes mellitus type: type 2 Diabetes mellitus complication detail: without coma Qualified Code(s): E11.10 - Type 2 diabetes mellitus with ketoacidosis without coma
[2020-03-19] MEDS: Liothyronine Sodium 5 MCG TAB PO SCH (09:23)
[2020-03-19] MEDS: Acetaminophen 325 MG TAB PO PRN ×2 (09:23→16:09)
[2020-03-19] MEDS: Ondansetron PF 4 MG/2 ML Vial IVP PRN ×2 (09:23→17:26)
[2020-03-19] MEDS: Sodium Chloride 0.9% 1,000 ML IV SCH ×2 (09:25→20:35)
[2020-03-19] MEDS: Leflunomide 10 mg Tablet PO SCH (09:25)
[2020-03-19] MEDS: Folic Acid 1 MG TAB PO SCH (09:25)
[2020-03-19] MEDS: Valsartan 80 MG TAB PO SCH ×2 (09:36→09:43)
[2020-03-19] MEDS: Dicyclomine 20 MG TAB PO PRN ×2 (09:43→16:09)
[2020-03-19] MEDS ORDERED: Insulin Glargine 15 UNITS in Pre-Filled Syringe 1 EACH SC SCH (09:45)
[2020-03-19 10:02] LABS: Hemoglobin A1c 7.3 % (4.0-6.0)
[2020-03-19] MEDS: Sucralfate 1 GM TAB PO SCH ×3 (11:10→20:39)
[2020-03-19] MEDS ORDERED: Metoclopramide HCl 10 MG/2 ML VIAL IVP SCH (14:00)
--- NOTE | 2020-03-19 16:00 | PDOC.HOSPP ---
- Subjective Encounter Date: 03/19/20 Encounter Time: 10:00 Subjective: Patient up in bed complains of abdominal pain. - Objective Vital Signs & Weight: Vital Signs (12 hours) Temp Pulse Resp BP Pulse Ox 03/19/20 08:33 98.2 F 93 18 120/64 99 Weight Admit Weight 189 lb 13.088 oz Weight 189 lb 13.088 oz Most Recent Monitor Data Heart Rate from ECG 97 NIBP 167/82 NIBP BP-Mean 110 Respiration from ECG 19 SpO2 100 I&O: 03/18/20 03/19/20 03/20/20 06:59 06:59 06:59 Intake Total 261.8 2292 Output Total 120 1800 Balance 141.8 492 Result Diagrams: 03/19/20 05:35 Additional Labs: Accuchecks 03/19/20 03/19/20 03/18/20 11:06 05:05 20:17 POC Glucose 311 H 224 H 170 H 03/18/20 16:56 POC Glucose 260 H Hospitalist ROS - Review of Systems Respiratory: denies: cough, dry, shortness of breath, hemoptysis, SOB with excertion, pleuritic pain, sputum, wheezing, other Cardiovascular: denies: chest pain, palpitations, orthopnea, paroxysmal noc. dyspnea, edema, light headedness, other Gastrointestinal: denies: nausea, vomiting, abdominal pain, diarrhea, constipation, melena, hematochezia, other - Medication Medications: Active Medications Generic Name Dose Route Start Last Admin Trade Name Freq PRN Reason Stop Dose Admin Acetaminophen 650 mg 03/18/20 15:32 03/19/20 09:23 Acetaminophen 325 Mg Tab PO 650 mg Q6H PRN Administration pain/fever Al Hydroxide/Mg Hydroxide 30 ml 03/18/20 16:41 03/18/20 22:44 Mag-Al Plus 1200 Mg/1200 Mg/120 Mg/30 Ml Udcup PO 30 ml Q6H PRN Administration Heartburn or Indigestion Dicyclomine HCl 20 mg 03/18/20 16:41 03/19/20 09:43 Dicyclomine 20 Mg Tab PO 20 mg QID PRN Administration abdominal pain Folic Acid 2 mg 03/19/20 09:00 03/19/20 09:25 Folic Acid 1 Mg Tab PO 2 mg DAILY HAL Administration Ceftriaxone Sodium 1 gm/ 100 mls @ 200 mls/hr 03/18/20 05:00 03/19/20 05:16 Sodium Chloride IVPB 100 mls Q24HR HAL Administration Sodium Chloride 1,000 mls @ 100 mls/hr 03/18/20 12:47 03/19/20 09:25 Normal Saline 0.9% IV 1,000 mls .Q10H HAL Administration Insulin Human Lispro 0 units 03/18/20 12:47 03/19/20 11:36 Humalog 300 Units/3 Ml Vial SC 8 units .MODERATE SLIDING SC PRN Administration Moderate Correctional Scale Leflunomide 20 mg 03/19/20 09:00 03/19/20 09:25 Leflunomide 10 Mg Tablet PO 20 mg DAILY HAL Administration Levothyroxine Sodium 150 mcg 03/19/20 06:00 03/19/20 05:16 Levothyroxine 150 Mcg Tab PO 150 mcg 0600 HAL Administration Liothyronine Sodium 5 mcg 03/19/20 09:00 03/19/20 09:23 Liothyronine Sodium 5 Mcg Tab PO 5 mcg DAILY HAL Administration Morphine Sulfate 2 mg 03/18/20 16:42 03/18/20 23:57 Morphine 2 Mg/Ml Vial SLOW IVP 2 mg Q4H PRN Administration Severe Pain (7-10) Ondansetron HCl 4 mg 03/18/20 16:41 03/19/20 09:23 Ondansetron Pf 4 Mg/2 Ml Vial IVP 4 mg Q6H PRN Administration Nausea/Vomiting Pantoprazole Sodium 40 mg 03/19/20 09:00 03/19/20 09:25 Pantoprazole 40 Mg Tab PO 40 mg DAILY HAL Administration Sucralfate 1 gm 03/19/20 11:30 03/19/20 11:10 Sucralfate 1 Gm Tab PO 1 gm ACHS HAL Administration Valsartan 160 mg 03/19/20 09:00 03/19/20 09:43 Valsartan 80 Mg Tab PO 160 mg DAILY HAL Administration - Exam Neck: negative: supple, symmetric, no JVD, no thyromegaly, no lymphadenopathy, no carotid bruit, JVD Heart: negative: RRR, no murmur, no gallops, no rubs, normal peripheral pulses, irregular, diminshed peripheral pulses, murmur present, II/IV, III/IV Respiratory: negative: CTAB, no wheezes, no rales, no ronchi, normal chest expansion, no tachypnea, normal percussion, rales, rhonchi, tachypneic, wheezes Gastrointestinal: soft, normal bowel sounds, tender to palpation Hosp A/P (1) Renal cyst Code(s): N28.1 - CYST OF KIDNEY, ACQUIRED Status: Acute (2) Diverticulosis Code(s): K57.90 - DVRTCLOS OF INTEST, PART UNSP, W/O PERF OR ABSCESS W/O BLEED Status: Acute (3) DKA (diabetic ketoacidoses) Code(s): E11.10 - TYPE 2 DIABETES MELLITUS WITH KETOACIDOSIS WITHOUT COMA Status: Resolved Qualifiers: Diabetes mellitus type: type 2 Diabetes mellitus complication detail: without coma Qualified Code(s): E11.10 - Type 2 diabetes mellitus with ketoacidosis without coma (4) Increased anion gap metabolic acidosis Code(s): E87.2 - ACIDOSIS Status: Acute - Plan will continue iv fluids. will start pt on lantus. Patient states that she was on Carafate at home. She did have a gastric emptying study done which was normal this was done in 2018. We will recheck CMP. Patient's gap continues to increase.
[2020-03-19 16:56] LABS: ALT (SGPT) 21 U/L (8-55); AST (SGOT) 26 U/L (5-34); Albumin 3.5 g/dL (3.4-4.8); Alkaline Phosphatase 71 U/L (40-110); Anion Gap 18 mmol/L (10-20); BUN (Urea Nitrogen) 18 mg/dL (9.8-20.1); Bilirubin, Total 0.6 mg/dL (0.2-1.2); Calc. Creatinine Clearance 85 mL/min (70-130); Calcium 8.7 mg/dL (7.8-10.44); Carbon Dioxide 16 mmol/L (23-31); Chloride 102 mmol/L (98-107); Estimated GFR-MDRD 65; Globulin 2.4 g/dL (2.4-3.5); Glucose 172 mg/dL (80-115); Potassium 4.8 mmol/L (3.5-5.1); Protein, Total 5.9 g/dL (6.0-8.3); Sodium 131 mmol/L (136-145)
--- NOTE | 2020-03-19 22:00 | RAD ---
KUB INDICATION: Abdominal distention with constipation and abdominal pain COMPARISON: None FINDINGS: Bowel gas: The bowel gas pattern is unobstructed. There is a moderate amount of retained stool within the colon. Lung bases: Clear. Additional findings: There are vascular consultation abdominal aorta. There is levoscoliosis of the l umbar spine. There is mild degenerative change of both hips. Osseous structures: No acute osseous abnormality is demonstrated. IMPRESSION: 1. Moderate amount retained stool in the colon.
[2020-03-19] MEDS ORDERED: Senokot 8.6 MG TAB PO PRN (22:28)
[2020-03-20] MEDS: Dicyclomine 20 MG TAB PO PRN (00:41)
[2020-03-20] MEDS: Mag-Al Plus 1200 MG/1200 MG/120 MG/30 ML UDCUP PO PRN (02:45)
[2020-03-20] MEDS: Levothyroxine 150 MCG TAB PO SCH (05:29)
[2020-03-20] MEDS: Sodium Chloride 0.9% 1,000 ML IV SCH ×2 (05:33→13:22)
[2020-03-20] MEDS: cefTRIAXone\\ROCEPHIN 1 GM in Sodium Chloride 0.9% 100 ML IVPB SCH (05:34)
[2020-03-20 06:24] LABS: Anion Gap 18 mmol/L (10-20); BUN (Urea Nitrogen) 11 mg/dL (9.8-20.1); Calc. Creatinine Clearance 99 mL/min (70-130); Calcium 8.6 mg/dL (7.8-10.44); Carbon Dioxide 17 mmol/L (23-31); Chloride 101 mmol/L (98-107); Estimated GFR-MDRD 77; Glucose 127 mg/dL (80-115); Potassium 4.5 mmol/L (3.5-5.1); Sodium 131 mmol/L (136-145)
[2020-03-20] MEDS ORDERED: Bisacodyl 5 MG TAB PO SCH (06:30)
[2020-03-20] MEDS: Sucralfate 1 GM TAB PO SCH ×2 (07:16→11:53)
[2020-03-20 07:17] LABS: #Basophils 0.1 thou/uL (0.0-0.2); #Lymphocytes 1.9 thou/uL (1.20-3.40); #Monocytes 0.7 thou/uL (0.11-0.59); #Neutrophils 8.6 thou/uL (1.40-6.50); %Basophils 0.6 % (0.0-1.0); %Eosinophils 0.3 % (0.0-10.0); %Monocytes 6.4 % (0.0-10.0); %Neutrophils 75.7 % (42.0-75.0); Mean Corpuscular HGB CONC 32.7 g/dL (32.0-36.0); Mean Corpuscular Hemoglobin 32.2 pg (27.0-31.0); Mean Corpuscular Volume 98.5 fL (78.0-98.0); Mean Platelet Volume 7.7 fL (7.4-10.4); Platelet Count 205 thou/uL (130-400); RBC Distribution Width 12.7 % (11.5-14.5); Red Blood Cell (RBC) Count 4.03 mill/uL (4.20-5.40); White Blood Cell (WBC) Count 11.4 thou/uL (4.8-10.8)
[2020-03-20] MEDS: Leflunomide 10 mg Tablet PO SCH (08:01)
[2020-03-20] MEDS: Folic Acid 1 MG TAB PO SCH (08:01)
[2020-03-20] MEDS ORDERED: Bisacodyl 10 MG SUPP PR SCH ×2 (08:15→12:00)
[2020-03-20] MEDS: Liothyronine Sodium 5 MCG TAB PO SCH (08:18)
[2020-03-20] MEDS: Valsartan 80 MG TAB PO SCH (08:24)
[2020-03-20] MEDS ORDERED: Insulin Glargine 15 UNITS in Pre-Filled Syringe 1 EACH SC SCH (09:00)
[2020-03-20] MEDS ORDERED: Polyethylene Glycol 3350 17 GM Packet PO SCH (09:00)
[2020-03-20] MEDS ORDERED: Senokot S 8.6-50 MG TAB PO SCH (09:00)
[2020-03-20] MEDS: HumaLOG 300 UNITS/3 ML VIAL SC PRN (13:02)
[2020-03-20] MEDS ORDERED: Magnesium Citrate 300 ML BOT PO SCH (15:00)
[2020-03-20 15:56] VITALS: BP 117/73; TEMP 98.1
[2020-03-20] MEDS: ALCAFTADINE EA EYE SCH ×2 (17:05→17:06)
[2020-03-20] MEDS: Desvenlafaxine Succinate [Pristiq] 25 MG Tab.Er.24h PO SCH (17:06)
--- NOTE | 2020-03-21 01:23 | DIS ---
DATE OF ADMISSION: 03/18/2020 DATE OF DISCHARGE: 03/20/2020 DISCHARGE DIAGNOSES: 1. Abdominal pain. 2. Diabetic ketoacidosis, resolved. 3. Type 1 diabetes. 4. Obesity. HOSPITAL COURSE: The patient is a very pleasant 65-year-old female who initially came to the hospital with an onset of abdominal pain. She initially traveled to [facility], had a CT chest, abdomen, pelvis with contrast. CT chest, abdomen, pelvis indicated diverticulosis and renal cyst. She also was noted to have a granuloma of the right lower lobe. Patient at this time was transferred here for further management. She initially was on insulin drip that was converted to subcu. She has an insulin pump. Her urine did not show any urinary infection. Her culture indicated skin chuckie. She was prophylactically put on antibiotics. Her COVID test was negative. Patient continued to improve. Her abdominal pain improved. She was able to tolerate her diet. She was then discharged home. She will follow up with primary. She did have a gastric emptying study done in 2018, which was negative. Her hemoglobin A1c was 7.3. MEDICATIONS: On discharge will be: 1. MiraLAX 17 g daily. 2. Senokot one b.i.d. 3. Carafate 1 g a.c. h.s. 4. Baclofen as needed. 5. Lunesta 3 mg q.h.s. 6. Folic acid one daily. 7. Arava 20 mg daily. 8. Synthroid 150 mcg daily. 9. Valsartan 160 mg p.o. daily. She was on Invokana. I have recommended her against taking the Invokana, which could be possibly causing her ketosis, however, unlikely she has been on it for years. She did have elevated sugars and had an elevated beta-hydroxybutyric acid. Patient will be discharged home. She will follow up with her primary. She was noted to be constipated. She was given medications for constipation and improved dramatically. She had a few bowel movements. PHYSICAL EXAMINATION: VITAL SIGNS: Her temperature of 98.0, 74, 18, 100% on room air, 139/73. GENERAL: She is awake, alert, and oriented x3, does not appear in distress. CVS: S1, S2 present. No murmurs, rubs, or gallops. ABDOMEN: Soft and nontender. Bowel sounds are present x2. DISCHARGE INSTRUCTIONS: Again, she will be discharged home. Follow up with primary and also I have provided her number with the vessel engineer. She may require an EGD, colonoscopy as an outpatient. Job ID: [id number]
--- NOTE | 2020-03-22 04:18 | PQF ---
Dear : Betsy Lyles Date 03/22/20 Please exercise your independent, professional judgment in responding to the clarification form. Clinical indicators are provided on the bottom of this form for your review Can you please further clarify if Sepsis is ruled in or ruled out? Sepsis [ ] Ruled in diagnosis [ ] Continue to treat [ ] Resolved [x ] Ruled out diagnosis [ ] Improving [ ] Cannot rule out diagnosis [ ] Other diagnosis please specify [ ] Unable to determine Physician Signature: Date/Time: For continuity of documentation, please document condition throughout progress notes and discharge summary. Thank You. To be completed by CDI/Coding staff for physician review: Present Clinical Indicators - Signs / Symptoms / Labs Results and Location in Medical Record [ x ] Abdominal pain H and P pg.1 [ x ] Patient found to be in DKA H and P pg.1 [ x ] WBC was also elevated and elevated UA suggestive of the presence of UTI H and P pg.1 [ x ] Urinalysis positive for nitrite ketones H and P pg.3 [ x ] Sepsis H and P pg.3 [ x ] Metabolic encephalopathy H and P pg.3 [ x ] Her urine did not shows any urine infection DS pg.1 [ x ] WBC 11.4H Laboratory [ x ] Acidosis PN 03/19 [ x ] Temp=99.7 Pknbe=084 Respi=20 EQ=522/76 Vital Signs 03/18 [ x ] Blood culture:no growth at 48 hrs Collected 03/18 Present Risk Factors Results and Location in Medical Record [ x ] UTI H and P pg.1 [ x ] Former smoker H and P pg.2 [ x ] Acute cystitis Hospitalist PN 03/18 pg.3 [ x ] DM H and P pg.1 [ x ] Obesity DS 03/20 [ x ] 65 years old female DS 03/20 Present Treatments Results and Location in Medical Record [ x ] Abdomen X ray 03/19 [ x ] Blood culture Microbiology [ x ] Urine Culture Microbiology [ x ] IV Fluids MAR [ x ] Ceftriaxone 1gm IV MAR CDS/Tire Maintenance Technician Signature: Hector Bush Phone #: ext [phone] Date 03/22/20 This is a permanent part of the Medical Record [facility]
--- NOTE | 2020-03-23 13:23 | EKG ---
Test Reason : STAT Blood Pressure : / mmHG Vent. Rate : 104 BPM Atrial Rate : 104 BPM P-R Int : 164 ms QRS Dur : 074 ms QT Int : 344 ms P-R-T Axes : 065 041 078 degrees QTc Int : 452 ms Sinus tachycardia Possible Left atrial enlargement Borderline ECG No previous ECGs available Confirmed by DR. Josue HUI ([id number]) on 03/23/2020 1:22:59 PM Referred By: SAQIB Confirmed By:DR. Josue HUI
== END 2020-03-20 17:04 | disposition home or self-care (01) | DRG 637 ==
LOC: ERS 02:37 → CCU 05:12 → T4-B 13:37
PROVIDERS: ADMIT Internal Medicine; ATTEND Internal Medicine
DX: E10.10 Type 1 diabetes mellitus with ketoacidosis without coma (principal); G93.41 Metabolic encephalopathy; E87.0 Hyperosmolality and hypernatremia; K57.30 Diverticulosis of large intestine without perforation or abscess without bleeding; E66.9 Obesity, unspecified; Z20.828 Contact with and (suspected) exposure to other viral communicable diseases; N28.1 Cyst of kidney, acquired; I10 Essential (primary) hypertension; Z96.41 Presence of insulin pump (external) (internal); K21.9 Gastro-esophageal reflux disease without esophagitis; M06.9 Rheumatoid arthritis, unspecified; K59.00 Constipation, unspecified; Z86.718 Personal history of other venous thrombosis and embolism; Z90.49 Acquired absence of other specified parts of digestive tract; Z87.891 Personal history of nicotine dependence; Z68.28 Body mass index [BMI] 28.0-28.9, adult
CPT/HCPCS: 36415; 36416; 74018; 80048; 82010; 83036; 83735; 83930; 84100; 85025; 87040; 87086; 87635; 93005; 93010; 96365; 96366; 96374; 96375; J0696; J1630; J1815; J2270; J2405; J3480; J3490; Q0162; U0003

== ENCOUNTER 2023-11-06 17:31 | Inpatient (IN) | payer MEDICARE, OTHER ==
[~2023-11-06 17:31] MED LIST: Iopamidol-370 76% 500 ML MDV (1 ML CHARGE) ONE
[2023-11-06 18:35] LABS: #Basophils 0.04 10x3/uL (0.0-0.2); #Eosinphils Less than 0.03 10x3/uL (0.0-0.7); %Basophils 0.2 % (0.0-1.0); %Eosinophils 0.1 % (0.0-10.0); %Lymphocytes 5.6 % (21.0-51.0); %Monocytes 8.5 % (0.0-10.0); %Neutrophils 85.1 % (42.0-75.0); Hematocrit 33.5 % (36.0-47.0); Hemoglobin 11.6 g/dL (12.0-16.0); Mean Corpuscular HGB CONC 34.6 g/dL (32.0-36.0); Mean Corpuscular Hemoglobin 31.9 pg (27.0-31.0); Platelet Count 258 10x3/uL (130-400); RBC Distribution Width 14.4 % (11.5-14.5); Red Blood Cell (RBC) Count 3.64 mill/uL (4.20-5.40)
[2023-11-06 18:46] LABS: INR-International Normal Ratio 1.1
[2023-11-06 18:47] LABS: PTT 32.1 sec (22.9-36.1)
[2023-11-06] MEDS ORDERED: Acetaminophen 500 MG TAB ONE (18:48)
[2023-11-06 18:51] LABS: Troponin I Less than 0.010 ng/mL (< 0.028)
[2023-11-06 18:52] LABS: ALT (SGPT) 11 U/L (8-55); AST (SGOT) 15 U/L (5-34); Albumin 2.7 g/dL (3.4-4.8); Alkaline Phosphatase 108 U/L (40-110); Anion Gap 15 mmol/L (10-20); BUN (Urea Nitrogen) 15 mg/dL (9.8-20.1); Bilirubin, Total 0.9 mg/dL (0.2-1.2); Calc. Creatinine Clearance 0 mL/min (70-130); Calcium 8.9 mg/dL (7.8-10.44); Carbon Dioxide 19 mmol/L (23-31); Chloride 87 mmol/L (98-107); Estimated GFR 73; Globulin 3.9 g/dL (2.4-3.5); Glucose 157 mg/dL (80-115); Potassium 3.5 mmol/L (3.5-5.1); Protein, Total 6.6 g/dL (5.8-8.1); Sodium 117 mmol/L (136-145)
[2023-11-06] MEDS ORDERED: Cefepime 2 GM VIAL ONE (19:00)
[2023-11-06] MEDS ORDERED: Sodium Chloride 0.9% 100 ML ONE (19:01)
[2023-11-06 19:29] LABS: Influenza A by NAA Not Detected (NotDetected); Influenza B by NAA Not Detected (NotDetected); SARS-CoV-2 NAA Rapid Test Not Detected (NotDetected)
[2023-11-06 20:03] LABS: Bacteria/HPF 4+ HPF (None Seen); Bilirubin Negative (Negative); Blood, Urine 1+ (Negative); CAUTI Indications for Culture Dysuria,urgency,freq; Clarity Turbid (Clear); Glucose, Urine (Dipstick) Normal (Negative); Ketone, Urine Negative (Negative); Leukocyte 500 Leu/uL (Negative); Nitrite Negative (Negative); Protein, Urine (Dipstick) 70 mg/dL (Neg-Trace); Specific Gravity, Urine 1.012 (1.002-1.036); Urobilinogen Normal mg/dL (Less than 2); WBC/HPF Greater than 50 HPF (0-3); pH, Urine 5.5 (5.0-9.0)
[2023-11-06 20:06] LABS: Urine Culture Reflex Yes Yes
[2023-11-06] MEDS ORDERED: Azithromycin 500 MG VIAL ONE (21:10)
[2023-11-06 21:42] LABS: Anion Gap 11 mmol/L (10-20); BUN (Urea Nitrogen) 14 mg/dL (9.8-20.1); Calc. Creatinine Clearance 0 mL/min (70-130); Calcium 8.4 mg/dL (7.8-10.44); Carbon Dioxide 21 mmol/L (23-31); Chloride 89 mmol/L (98-107); Estimated GFR 84; Glucose 103 mg/dL (80-115); Potassium 3.4 mmol/L (3.5-5.1); Sodium 118 mmol/L (136-145)
[2023-11-06] MEDS ORDERED: Acetaminophen 325 MG TAB PO PRN (21:58)
[2023-11-06] MEDS ORDERED: Acetaminophen 650 MG Suppository PR PRN (21:58)
[2023-11-07 00:46] VITALS: BMI 26.9
[2023-11-07] MEDS ORDERED: HumaLOG 300 UNITS/3 ML VIAL SC PRN ×2 (02:05)
[2023-11-07] MEDS ORDERED: Dextrose 50% Abboject 50 ML SYRINGE SLOW IVP PRN (02:05)
[2023-11-07] MEDS ORDERED: Glucagon 1 MG/ML KIT IM PRN (02:05)
[2023-11-07] MEDS ORDERED: Dextrose 5% in Water 1,000 ML IV PRN (02:05)
[2023-11-07 02:34] LABS: Anion Gap 13 mmol/L (10-20); BUN (Urea Nitrogen) 11 mg/dL (9.8-20.1); Calc. Creatinine Clearance 99 mL/min (70-130); Calcium 8.4 mg/dL (7.8-10.44); Carbon Dioxide 19 mmol/L (23-31); Chloride 90 mmol/L (98-107); Estimated GFR 94; Glucose 111 mg/dL (80-115); Sodium 119 mmol/L (136-145)
[2023-11-07] MEDS ORDERED: Electrolyte Replacement Protocol FS PRN (03:00)
[2023-11-07] MEDS: Sodium Chloride 0.9% 1,000 ML IV SCH ×2 (03:02→17:49)
[2023-11-07] MEDS: Potassium Chloride 20 MEQ TAB PO SCH ×2 (03:02→22:51)
[2023-11-07] MEDS: Cefepime 2 GM in Sodium Chloride 0.9% 100 ML IVPB SCH (05:25)
[2023-11-07 06:26] LABS: #Basophils 0.06 10x3/uL (0.0-0.2); #Eosinphils Less than 0.03 10x3/uL (0.0-0.7); %Basophils 0.3 % (0.0-1.0); %Eosinophils 0.1 % (0.0-10.0); %Lymphocytes 4.4 % (21.0-51.0); %Monocytes 10.6 % (0.0-10.0); Hemoglobin 10.4 g/dL (12.0-16.0); Mean Corpuscular HGB CONC 35.9 g/dL (32.0-36.0); Mean Corpuscular Hemoglobin 31.4 pg (27.0-31.0); Mean Corpuscular Volume 87.6 fL (78.0-98.0); Mean Platelet Volume 10.3 fL (7.4-10.4); Platelet Count 257 10x3/uL (130-400); RBC Distribution Width 14.1 % (11.5-14.5); Red Blood Cell (RBC) Count 3.31 mill/uL (4.20-5.40)
[2023-11-07 06:50] LABS: Anion Gap 14 mmol/L (10-20); BUN (Urea Nitrogen) 10 mg/dL (9.8-20.1); Calc. Creatinine Clearance 101 mL/min (70-130); Calcium 8.5 mg/dL (7.8-10.44); Carbon Dioxide 20 mmol/L (23-31); Chloride 93 mmol/L (98-107); Estimated GFR 94; Glucose 107 mg/dL (80-115); Magnesium 1.3 mg/dL (1.6-2.6); Potassium 3.3 mmol/L (3.5-5.1); Sodium 124 mmol/L (136-145)
[2023-11-07 07:36] LABS: Potassium 3.9 mmol/L (3.5-5.1)
[2023-11-07] MEDS ORDERED: Potassium Chloride 20 MEQ TAB PO SCH (08:00)
[2023-11-07] MEDS: Magnesium Sulfate In Water 4 GM in Premix 1 BAG IVPB SCH (09:00)
[2023-11-07] MEDS: Ondansetron ODT 4 MG TAB PO PRN (09:00)
[2023-11-07] MEDS ORDERED: cefTRIAXone\\ROCEPHIN 1 GM in Sodium Chloride 0.9% 100 ML IVPB SCH (09:00)
[2023-11-07 09:55] LABS: Free T4 (Free Thyroxine) 1.14 ng/dL (0.70-1.48); Thyroid Stimulating Hormone 0.5657 uIU/mL (0.35-4.94)
[2023-11-07] MEDS: Ondansetron PF 4 MG/2 ML Vial IVP PRN (15:17)
[2023-11-07] MEDS: Pantoprazole DR 40 MG TAB PO SCH (16:04)
[2023-11-07] MEDS: Sucralfate 1 GM TAB PO SCH (17:49)
[2023-11-07] MEDS: Metoclopramide HCl 10 MG (2 mL) VIAL IVP SCH (18:32)
[2023-11-07] MEDS: Losartan 25 MG TAB PO SCH (21:09)
[2023-11-07] MEDS: Zolpidem Tartrate 5 MG TAB PO SCH (21:10)
[2023-11-07] MEDS: Senokot S 8.6-50 MG TAB PO SCH (21:10)
[2023-11-07 22:15] LABS: Anion Gap 18 mmol/L (10-20); BUN (Urea Nitrogen) 7 mg/dL (9.8-20.1); Calc. Creatinine Clearance 115 mL/min (70-130); Calcium 8.5 mg/dL (7.8-10.44); Carbon Dioxide 18 mmol/L (23-31); Chloride 88 mmol/L (98-107); Estimated GFR 97; Glucose 142 mg/dL (80-115); Sodium 121 mmol/L (136-145)
[2023-11-08] MEDS: Metoclopramide HCl 10 MG (2 mL) VIAL IVP PRN (00:14)
[2023-11-08] MEDS: hydrALAZINE 20 MG/ML VIAL SLOW IVP PRN (00:14)
[2023-11-08 04:37] LABS: #Basophils 0.03 10x3/uL (0.0-0.2); #Eosinphils Less than 0.03 10x3/uL (0.0-0.7); %Basophils 0.2 % (0.0-1.0); %Monocytes 7.9 % (0.0-10.0); %Neutrophils 87.1 % (42.0-75.0); Hematocrit 34.3 % (36.0-47.0); Hemoglobin 12.3 g/dL (12.0-16.0); Mean Corpuscular HGB CONC 35.9 g/dL (32.0-36.0); Mean Corpuscular Volume 89.3 fL (78.0-98.0); Mean Platelet Volume 9.6 fL (7.4-10.4); Platelet Count 288 10x3/uL (130-400); RBC Distribution Width 14.4 % (11.5-14.5); Red Blood Cell (RBC) Count 3.84 mill/uL (4.20-5.40)
[2023-11-08 05:06] LABS: Anion Gap 16 mmol/L (10-20); BUN (Urea Nitrogen) 8 mg/dL (9.8-20.1); Calc. Creatinine Clearance 111 mL/min (70-130); Calcium 8.3 mg/dL (7.8-10.44); Carbon Dioxide 19 mmol/L (23-31); Chloride 89 mmol/L (98-107); Estimated GFR 97; Glucose 204 mg/dL (80-115); Magnesium 1.8 mg/dL (1.6-2.6); Potassium 3.3 mmol/L (3.5-5.1); Sodium 121 mmol/L (136-145)
[2023-11-08] MEDS: Levothyroxine 150 MCG TAB PO SCH (05:31)
[2023-11-08] MEDS ORDERED: Potassium Chloride 20 MEQ TAB PO SCH (08:00)
[2023-11-08] MEDS: Magnesium 2 GM/50 ML(in water) 2 GM in Premix 1 BAG IVPB SCH (08:27)
[2023-11-08] MEDS: Pantoprazole DR 40 MG TAB PO SCH (08:27)
[2023-11-08] MEDS ORDERED: VALSARTAN 160 MG PO SCH (09:00)
[2023-11-08] MEDS ORDERED: DESVENLAFAXINE SUCCINATE 25 MG PO SCH (09:00)
[2023-11-08 12:14] LABS: Potassium 2.9 mmol/L (3.5-5.1)
[2023-11-08] MEDS: Potassium Chloride 20 MEQ TAB PO SCH (14:15)
[2023-11-08] MEDS: DULoxetine 60 MG CAP PO SCH (14:45)
[2023-11-08] MEDS: Losartan 25 MG TAB PO SCH (14:46)
[2023-11-08] MEDS: Folic Acid 1 MG TAB PO SCH (14:46)
[2023-11-08] MEDS: Leflunomide 10 mg Tablet PO SCH (14:46)
[2023-11-08] MEDS: Polyethylene Glycol 3350 17 GM Packet PO SCH (14:46)
[2023-11-08] MEDS: Potassium Chloride 20 MEQ in Premix 1 BAG IVPB SCH (14:47)
[2023-11-08 17:14] LABS: Potassium 4.3 mmol/L (3.5-5.1); Sodium 120 mmol/L (136-145)
[2023-11-08 17:21] LABS: Anion Gap 14 mmol/L (10-20); BUN (Urea Nitrogen) 9 mg/dL (9.8-20.1); Calc. Creatinine Clearance 106 mL/min (70-130); Calcium 8.4 mg/dL (7.8-10.44); Carbon Dioxide 19 mmol/L (23-31); Chloride 90 mmol/L (98-107); Estimated GFR 95; Glucose 151 mg/dL (80-115); Potassium 4.3 mmol/L (3.5-5.1); Sodium 119 mmol/L (136-145)
[2023-11-08] MEDS: ALCAFTADINE EA EYE SCH (20:26)
[2023-11-09 05:05] LABS: #Basophils Less than 0.03 10x3/uL (0.0-0.2); %Basophils 0.1 % (0.0-1.0); %Eosinophils 0.6 % (0.0-10.0); %Lymphocytes 10.9 % (21.0-51.0); %Monocytes 10.4 % (0.0-10.0); %Neutrophils 77.4 % (42.0-75.0); Hematocrit 30.9 % (36.0-47.0); Hemoglobin 11.1 g/dL (12.0-16.0); Mean Corpuscular HGB CONC 35.9 g/dL (32.0-36.0); Mean Platelet Volume 9.9 fL (7.4-10.4); Platelet Count 323 10x3/uL (130-400); RBC Distribution Width 14.5 % (11.5-14.5); Red Blood Cell (RBC) Count 3.47 mill/uL (4.20-5.40)
[2023-11-09 05:30] LABS: Anion Gap 12 mmol/L (10-20); BUN (Urea Nitrogen) 12 mg/dL (9.8-20.1); Calc. Creatinine Clearance 102 mL/min (70-130); Calcium 8.2 mg/dL (7.8-10.44); Carbon Dioxide 21 mmol/L (23-31); Chloride 92 mmol/L (98-107); Estimated GFR 96; Glucose 132 mg/dL (80-115); Potassium 3.2 mmol/L (3.5-5.1); Sodium 122 mmol/L (136-145)
[2023-11-09] MEDS: Promethazine HCl 12.5 MG in Sodium Chloride 0.9% 50 ML IVPB PRN (08:55)
[2023-11-09] MEDS: Potassium Chloride 20 MEQ TAB PO SCH (08:56)
[2023-11-09] MEDS: Baclofen 10 MG TAB PO PRN (08:56)
[2023-11-09] MEDS: Magnesium 2 GM/50 ML(in water) 2 GM in Premix 1 BAG IVPB SCH ×2 (08:57→22:01)
[2023-11-09] MEDS: Sodium Chloride 0.9% 1,000 ML IV SCH ×2 (12:41→13:35)
[2023-11-09] MEDS: Morphine 4 MG/ML VIAL SLOW IVP PRN (12:42)
[2023-11-09 14:47] LABS: #Basophils Less than 0.03 10x3/uL (0.0-0.2); #Eosinphils Less than 0.03 10x3/uL (0.0-0.7); %Basophils 0.1 % (0.0-1.0); %Eosinophils 0.1 % (0.0-10.0); %Monocytes 6.7 % (0.0-10.0); %Neutrophils 86.3 % (42.0-75.0); Hematocrit 33.7 % (36.0-47.0); Mean Corpuscular HGB CONC 35.6 g/dL (32.0-36.0); Mean Corpuscular Hemoglobin 31.4 pg (27.0-31.0); Mean Corpuscular Volume 88.2 fL (78.0-98.0); Mean Platelet Volume 9.6 fL (7.4-10.4); Platelet Count 380 10x3/uL (130-400); RBC Distribution Width 14.5 % (11.5-14.5); Red Blood Cell (RBC) Count 3.82 mill/uL (4.20-5.40)
[2023-11-09 16:32] LABS: ALT (SGPT) 22 U/L (8-55); AST (SGOT) 26 U/L (5-34); Albumin 2.3 g/dL (3.4-4.8); Alkaline Phosphatase 102 U/L (40-110); Anion Gap 16 mmol/L (10-20); BUN (Urea Nitrogen) 9 mg/dL (9.8-20.1); Bilirubin, Total 0.8 mg/dL (0.2-1.2); Calc. Creatinine Clearance 103 mL/min (70-130); Carbon Dioxide 18 mmol/L (23-31); Chloride 93 mmol/L (98-107); Estimated GFR 97; Globulin 3.5 g/dL (2.4-3.5); Glucose 195 mg/dL (80-115); Lipase 9 U/L (8-78); Potassium 3.6 mmol/L (3.5-5.1); Protein, Total 5.8 g/dL (5.8-8.1); Sodium 123 mmol/L (136-145)
[2023-11-09] MEDS: Pantoprazole 40 MG VIAL IVP SCH (17:27)
[2023-11-10 06:05] LABS: #Basophils 0.04 10x3/uL (0.0-0.2); #Eosinphils Less than 0.03 10x3/uL (0.0-0.7); %Basophils 0.3 % (0.0-1.0); %Eosinophils 0.2 % (0.0-10.0); %Lymphocytes 13.5 % (21.0-51.0); %Monocytes 10.8 % (0.0-10.0); %Neutrophils 74.4 % (42.0-75.0); Hematocrit 28.5 % (36.0-47.0); Hemoglobin 10.4 g/dL (12.0-16.0); Mean Corpuscular HGB CONC 36.5 g/dL (32.0-36.0); Mean Corpuscular Volume 87.7 fL (78.0-98.0); Mean Platelet Volume 9.9 fL (7.4-10.4); Platelet Count 398 10x3/uL (130-400); Red Blood Cell (RBC) Count 3.25 mill/uL (4.20-5.40)
[2023-11-10 06:28] LABS: Anion Gap 12 mmol/L (10-20); BUN (Urea Nitrogen) 16 mg/dL (9.8-20.1); Calc. Creatinine Clearance 91 mL/min (70-130); Calcium 8.1 mg/dL (7.8-10.44); Carbon Dioxide 19 mmol/L (23-31); Chloride 97 mmol/L (98-107); Estimated GFR 91; Glucose 163 mg/dL (80-115); Potassium 3.2 mmol/L (3.5-5.1); Sodium 125 mmol/L (136-145)
[2023-11-10] MEDS: Potassium Chloride 20 MEQ TAB PO SCH (09:54)
[2023-11-10] MEDS: Pantoprazole 40 MG VIAL IVP SCH (09:55)
[2023-11-10] MEDS: Sodium Bicarbonate Tab 325 MG TAB PO SCH (16:10)
[2023-11-11 05:48] LABS: #Basophils 0.03 10x3/uL (0.0-0.2); %Basophils 0.3 % (0.0-1.0); %Eosinophils 1.2 % (0.0-10.0); %Lymphocytes 18.2 % (21.0-51.0); %Monocytes 11.2 % (0.0-10.0); %Neutrophils 68.4 % (42.0-75.0); Hematocrit 28.1 % (36.0-47.0); Mean Corpuscular HGB CONC 35.6 g/dL (32.0-36.0); Mean Corpuscular Hemoglobin 31.8 pg (27.0-31.0); Mean Corpuscular Volume 89.5 fL (78.0-98.0); Mean Platelet Volume 9.4 fL (7.4-10.4); Platelet Count 404 10x3/uL (130-400); RBC Distribution Width 14.6 % (11.5-14.5); Red Blood Cell (RBC) Count 3.14 mill/uL (4.20-5.40)
[2023-11-11 06:01] LABS: Anion Gap 9 mmol/L (10-20); BUN (Urea Nitrogen) 8 mg/dL (9.8-20.1); Calc. Creatinine Clearance 119 mL/min (70-130); Calcium 8.2 mg/dL (7.8-10.44); Carbon Dioxide 23 mmol/L (23-31); Chloride 97 mmol/L (98-107); Estimated GFR 99; Glucose 66 mg/dL (80-115); Potassium 3.1 mmol/L (3.5-5.1); Sodium 126 mmol/L (136-145)
[2023-11-11] MEDS: Potassium Chloride 20 MEQ TAB PO SCH (08:26)
[2023-11-11] MEDS: cefTRIAXone\\ROCEPHIN 1 GM in Sodium Chloride 0.9% 100 ML IVPB SCH (17:52)
[2023-11-11 19:40] LABS: Anion Gap 10 mmol/L (10-20); BUN (Urea Nitrogen) 13 mg/dL (9.8-20.1); Calc. Creatinine Clearance 72 mL/min (70-130); Calcium 8.8 mg/dL (7.8-10.44); Carbon Dioxide 23 mmol/L (23-31); Chloride 95 mmol/L (98-107); Estimated GFR 69; Glucose 130 mg/dL (80-115); Sodium 124 mmol/L (136-145)
[2023-11-12 04:49] LABS: #Basophils 0.03 10x3/uL (0.0-0.2); %Basophils 0.3 % (0.0-1.0); %Lymphocytes 20.5 % (21.0-51.0); %Monocytes 11.2 % (0.0-10.0); Hematocrit 26.9 % (36.0-47.0); Hemoglobin 9.4 g/dL (12.0-16.0); Mean Corpuscular HGB CONC 34.9 g/dL (32.0-36.0); Mean Corpuscular Hemoglobin 32.2 pg (27.0-31.0); Mean Corpuscular Volume 92.1 fL (78.0-98.0); Mean Platelet Volume 9.6 fL (7.4-10.4); Platelet Count 441 10x3/uL (130-400); RBC Distribution Width 14.7 % (11.5-14.5); Red Blood Cell (RBC) Count 2.92 mill/uL (4.20-5.40)
[2023-11-12 05:08] LABS: Anion Gap 9 mmol/L (10-20); BUN (Urea Nitrogen) 12 mg/dL (9.8-20.1); Calc. Creatinine Clearance 87 mL/min (70-130); Calcium 8.6 mg/dL (7.8-10.44); Carbon Dioxide 25 mmol/L (23-31); Chloride 104 mmol/L (98-107); Estimated GFR 87; Glucose 137 mg/dL (80-115); Magnesium 1.8 mg/dL (1.6-2.6); Potassium 4.5 mmol/L (3.5-5.1); Sodium 133 mmol/L (136-145)
[2023-11-12] MEDS: Magnesium 2 GM/50 ML(in water) 2 GM in Premix 1 BAG IVPB SCH (10:00)
[2023-11-12] MEDS: Sodium Chloride 0.9% 1,000 ML IV SCH (18:33)
[2023-11-12] MEDS: Promethazine HCl 12.5 MG in Sodium Chloride 0.9% 50 ML IVPB PRN (20:30)
[2023-11-13 05:16] LABS: #Basophils 0.04 10x3/uL (0.0-0.2); %Basophils 0.3 % (0.0-1.0); %Lymphocytes 19.5 % (21.0-51.0); %Monocytes 9.6 % (0.0-10.0); %Neutrophils 68.5 % (42.0-75.0); Hematocrit 28.7 % (36.0-47.0); Hemoglobin 9.9 g/dL (12.0-16.0); Mean Corpuscular HGB CONC 34.5 g/dL (32.0-36.0); Mean Corpuscular Hemoglobin 30.6 pg (27.0-31.0); Mean Corpuscular Volume 88.6 fL (78.0-98.0); Mean Platelet Volume 9.4 fL (7.4-10.4); Platelet Count 568 10x3/uL (130-400); RBC Distribution Width 14.8 % (11.5-14.5); Red Blood Cell (RBC) Count 3.24 mill/uL (4.20-5.40)
[2023-11-13 05:24] LABS: Anion Gap 14 mmol/L (10-20); BUN (Urea Nitrogen) 7 mg/dL (9.8-20.1); Calc. Creatinine Clearance 0 mL/min (70-130); Calcium 8.3 mg/dL (7.8-10.44); Carbon Dioxide 24 mmol/L (23-31); Chloride 101 mmol/L (98-107); Estimated GFR 96; Glucose 101 mg/dL (80-115); Potassium 3.2 mmol/L (3.5-5.1); Sodium 136 mmol/L (136-145)
[2023-11-13] MEDS: Potassium Chloride 20 MEQ TAB PO SCH (08:15)
[2023-11-13 09:48] VITALS: BMI 26.6
[2023-11-13 11:40] VITALS: BP 125/67; TEMP 97.9
== END 2023-11-13 16:59 | disposition home or self-care (01) | DRG 872 ==
LOC: ERS 17:31 → 2SW 21:14
PROVIDERS: ADMIT Student in an Organized Health Care Education/Training Program; ATTEND Internal Medicine
DX: A41.9 Sepsis, unspecified organism (principal); N39.0 Urinary tract infection, site not specified; E87.20 Acidosis, unspecified; N17.9 Acute kidney failure, unspecified; E22.2 Syndrome of inappropriate secretion of antidiuretic hormone; E11.9 Type 2 diabetes mellitus without complications; M06.9 Rheumatoid arthritis, unspecified; E87.6 Hypokalemia; E83.42 Hypomagnesemia; N18.2 Chronic kidney disease, stage 2 (mild); D63.1 Anemia in chronic kidney disease; E88.09 Other disorders of plasma-protein metabolism, not elsewhere classified; I12.9 Hypertensive chronic kidney disease with stage 1 through stage 4 chronic kidney disease, or unspecified chronic kidney disease; Z66 Do not resuscitate; Z79.84 Long term (current) use of oral hypoglycemic drugs; Z90.49 Acquired absence of other specified parts of digestive tract; Z90.710 Acquired absence of both cervix and uterus; Z98.51 Tubal ligation status; Z79.899 Other long term (current) drug therapy
CPT/HCPCS: 36415; 36416; 71045; 71275; 74176; 80048; 80053; 81001; 83605; 83690; 83735; 83880; 83930; 83935; 84145; 84300; 84439; 84443; 84481; 84484; 85025; 85610; 85730; 87040; 87077; 87086; 87149; 87186; 93005; 94760; 96365; 96375; C9113; J0360; J0456; J0692; J0696; J2270; J2405; J2550; J2765; J3475; J3480; J3490; J7050; Q0162; Q9967

== ENCOUNTER 2024-01-20 15:25 | Emergency (ER) | payer MEDICARE, OTHER ==
[2024-01-20 17:15] LABS: #Basophils 0.04 10x3/uL (0.0-0.2); %Basophils 0.4 % (0.0-1.0); %Eosinophils 3.8 % (0.0-10.0); %Monocytes 9.5 % (0.0-10.0); %Neutrophils 57.8 % (42.0-75.0); Hematocrit 34.1 % (36.0-47.0); Hemoglobin 11.7 g/dL (12.0-16.0); Mean Corpuscular HGB CONC 34.3 g/dL (32.0-36.0); Mean Corpuscular Hemoglobin 31.1 pg (27.0-31.0); Mean Corpuscular Volume 90.7 fL (78.0-98.0); Mean Platelet Volume 9.1 fL (7.4-10.4); Platelet Count 371 10x3/uL (130-400); RBC Distribution Width 14.3 % (11.5-14.5); Red Blood Cell (RBC) Count 3.76 mill/uL (4.20-5.40)
[2024-01-20 17:42] LABS: Troponin I 0.018 ng/mL (< 0.028)
[2024-01-20 18:31] LABS: ALT (SGPT) 6 U/L (8-55); AST (SGOT) 8 U/L (5-34); Albumin 3.1 g/dL (3.4-4.8); Alkaline Phosphatase 69 U/L (40-110); Anion Gap 14 mmol/L (10-20); BUN (Urea Nitrogen) 29 mg/dL (9.8-20.1); Bilirubin, Total 0.3 mg/dL (0.2-1.2); Calc. Creatinine Clearance 0 mL/min (70-130); Calcium 9.1 mg/dL (7.8-10.44); Carbon Dioxide 21 mmol/L (23-31); Chloride 98 mmol/L (98-107); Estimated GFR 68; Globulin 2.6 g/dL (2.4-3.5); Glucose 79 mg/dL (80-115); Magnesium 1.5 mg/dL (1.6-2.6); Protein, Total 5.7 g/dL (5.8-8.1); Sodium 129 mmol/L (136-145)
[2024-01-20 19:03] LABS: Bacteria/HPF None Seen HPF (None Seen); Bilirubin Negative (Negative); Blood, Urine Negative (Negative); CAUTI Indications for Culture Dysuria,urgency,freq; Clarity Clear (Clear); Glucose, Urine (Dipstick) Normal (Negative); Ketone, Urine Negative (Negative); Leukocyte 25 Leu/uL (Negative); Nitrite Negative (Negative); Protein, Urine (Dipstick) Negative (Neg-Trace); RBC/HPF 0-3 HPF (0-3); Specific Gravity, Urine 1.011 (1.002-1.036); Squamous Epithelial 0-3 HPF (0-3); Urobilinogen Normal mg/dL (Less than 2)
[2024-01-20 19:04] LABS: Urine Culture Reflex No No
== END 2024-01-20 23:27 ==
LOC: ERS 15:25
DX: R53.1 Weakness (principal); E87.1 Hypo-osmolality and hyponatremia; E83.42 Hypomagnesemia; E11.9 Type 2 diabetes mellitus without complications
CPT/HCPCS: 36415; 71045; 80053; 81001; 83605; 83735; 84484; 85025; 87086; 93005

== ENCOUNTER 2024-05-30 15:59 | Emergency (ER) | payer MEDICARE, OTHER ==
[2024-05-30] MEDS ORDERED: Morphine 2 MG/ML VIAL ONE (16:26)
[2024-05-30] MEDS ORDERED: Ondansetron PF 4 MG/2 ML Vial ONE ×2 (16:26→19:45)
[2024-05-30 17:27] LABS: Bacteria/HPF None Seen HPF (None Seen); Bilirubin Negative (Negative); Blood, Urine Negative (Negative); CAUTI Indications for Culture Fever or rigors; Clarity Clear (Clear); Glucose, Urine (Dipstick) Normal (Negative); Ketone, Urine 40 mg/dL (Negative); Leukocyte Negative Leu/uL (Negative); Nitrite Negative (Negative); Protein, Urine (Dipstick) Negative (Neg-Trace); RBC/HPF 0-3 HPF (0-3); Squamous Epithelial 0-3 HPF (0-3); Urobilinogen Normal mg/dL (Less than 2); WBC/HPF 0-3 HPF (0-3)
[2024-05-30 17:32] LABS: #Basophils 0.04 10x3/uL (0.0-0.2); #Eosinophils Less than 0.03 10x3/uL (0.0-0.7); %Basophils 0.4 % (0.0-1.0); %Eosinophils 0.2 % (0.0-10.0); %Monocytes 4.7 % (0.0-10.0); %Neutrophils 87.3 % (42.0-75.0); Hematocrit 35.9 % (36.0-47.0); Hemoglobin 11.9 g/dL (12.0-16.0); Mean Corpuscular HGB CONC 33.1 g/dL (32.0-36.0); Mean Corpuscular Volume 90.4 fL (78.0-98.0); Mean Platelet Volume 8.9 fL (7.4-10.4); Platelet Count 421 10x3/uL (130-400); Red Blood Cell (RBC) Count 3.97 mill/uL (4.20-5.40)
[2024-05-30 17:45] LABS: Urine Culture Reflex No No
[2024-05-30 17:54] LABS: ALT (SGPT) 8 U/L (8-55); AST (SGOT) 10 U/L (5-34); Albumin 3.6 g/dL (3.4-4.8); Alkaline Phosphatase 66 U/L (40-110); Anion Gap 17 mmol/L (10-20); BUN (Urea Nitrogen) 10 mg/dL (9.8-20.1); Bilirubin, Total 0.6 mg/dL (0.2-1.2); Calc. Creatinine Clearance 0 mL/min (70-130); Calcium 9.1 mg/dL (7.8-10.44); Carbon Dioxide 20 mmol/L (23-31); Chloride 101 mmol/L (98-107); Estimated GFR 93; Globulin 3.5 g/dL (2.4-3.5); Glucose 202 mg/dL (83-110); Lipase 10 U/L (8-78); Potassium 3.2 mmol/L (3.5-5.1); Protein, Total 7.1 g/dL (5.8-8.1); Sodium 135 mmol/L (136-145)
[2024-05-30] MEDS ORDERED: Morphine 4 MG/ML VIAL ONE (19:48)
== END 2024-05-30 20:00 | disposition home or self-care (01) ==
LOC: ERS 15:59
DX: K59.00 Constipation, unspecified (principal); R10.84 Generalized abdominal pain; R11.2 Nausea with vomiting, unspecified; E10.9 Type 1 diabetes mellitus without complications; M81.0 Age-related osteoporosis without current pathological fracture; M06.9 Rheumatoid arthritis, unspecified; Z79.85 Long-term (current) use of injectable non-insulin antidiabetic drugs; Z79.899 Other long term (current) drug therapy
CPT/HCPCS: 74177; 80053; 81001; 82962; 83690; 85025; J2272 ×2; J2405; 36415; 36416; 96361; 96374; 96375; 96376

== ENCOUNTER 2025-02-13 14:03 | Emergency (ER) | payer MEDICARE, OTHER ==
[2025-02-13] MEDS ORDERED: Ondansetron PF 4 MG/2 ML Vial ONE (14:32)
[2025-02-13] MEDS ORDERED: Metoclopramide HCl 10 MG (2 mL) VIAL ONE (15:28)
[2025-02-13 15:30] LABS: #Basophils 0.03 10x3/uL (0.0-0.2); #Eosinophils 0.03 10x3/uL (0.0-0.7); #Monocytes 0.45 10x3/uL (0.11-0.59); #Neutrophils 9.16 10x3/uL (1.40-6.50); %Basophils 0.3 % (0.0-1.0); %Eosinophils 0.3 % (0.0-10.0); %Lymphocytes 10.5 % (21.0-51.0); %Monocytes 4.1 % (0.0-10.0); %Neutrophils 84.4 % (42.0-75.0); Hematocrit 39.7 % (36.0-47.0); Hemoglobin 12.8 g/dL (12.0-16.0); Mean Corpuscular Hemoglobin 29.2 pg (27.0-31.0); Mean Corpuscular Volume 90.4 fL (78.0-98.0); Platelet Count 486 10x3/uL (130-400); Red Blood Cell (RBC) Count 4.39 mill/uL (4.20-5.40); White Blood Cell (WBC) Count 10.85 10x3/uL (4.8-10.8)
[2025-02-13 15:49] LABS: ALT (SGPT) 8 U/L (Less than 34); AST (SGOT) 19 U/L (11-34); Albumin 4.0 g/dL (3.1-4.5); Alkaline Phosphatase 69 U/L (40-110); Anion Gap 22 mmol/L (10-20); BUN (Urea Nitrogen) 13 mg/dL (9.8-20.1); Bilirubin, Total 0.4 mg/dL (0.3-1.2); Calc. Creatinine Clearance 0 mL/min (70-130); Calcium 10.2 mg/dL (7.8-10.44); Carbon Dioxide 20 mmol/L (23-31); Chloride 95 mmol/L (98-107); Globulin 3.9 g/dL (2.4-3.5); Glucose 203 mg/dL (83-110); Lipase 15 U/L (8-78); Potassium 3.8 mmol/L (3.5-5.1); Sodium 133 mmol/L (136-145)
[2025-02-13 18:56] LABS: Anion Gap 19 mmol/L (10-20); BUN (Urea Nitrogen) 10 mg/dL (9.8-20.1); Calc. Creatinine Clearance 0 mL/min (70-130); Calcium 9.0 mg/dL (7.8-10.44); Carbon Dioxide 21 mmol/L (23-31); Chloride 100 mmol/L (98-107); Glucose 158 mg/dL (83-110); Potassium 3.3 mmol/L (3.5-5.1); Sodium 137 mmol/L (136-145)
[2025-02-13 19:33] LABS: Actual Bicarbonate (HCO3v) 22.4 mEq/L (22-28); Base Excess -2.8 mEq/L (-2.0 to +3.0); Calcium, Ionized (venous) 0.93 mmol/L (1.16-1.32); Chloride (VBG) 99 mmol/L (98-106); Hematocrit-VBG 39 % (36.0-47.0); Hemoglobin (Hb) 13.3 g/dL (11.7-16.1); Potassium (VBG) 3.53 mmol/L (3.70-5.30); Sodium 134 mmol/L (133-146)
== END 2025-02-13 19:21 | disposition home or self-care (01) ==
LOC: ERS 14:03
DX: R10.30 Lower abdominal pain, unspecified (principal); R11.2 Nausea with vomiting, unspecified; E10.22 Type 1 diabetes mellitus with diabetic chronic kidney disease; N18.6 End stage renal disease; Z55.6 Problems related to health literacy
CPT/HCPCS: 71045; 71275; 74177; 80048; 80053; 82010; 82805; 83605; 83690; 84484; 85025; 87040; 93005; J2270; J2405; J2543; J2765; J3010; 36415; 96361; 96365; 96368; 96375; Q9967

== ENCOUNTER 2025-02-15 04:25 | Inpatient (IN) | payer MEDICARE, OTHER ==
[2025-02-15 05:50] LABS: MONO NEGATIVE CONTROL ZONE White (Negative) (White); MONO POSITIVE CONTROL Pink Line (Positive) (PINK/RED); Mononucleosis NEGATIVE (NEGATIVE)
[2025-02-15 05:51] LABS: ALT (SGPT) 7 U/L (Less than 34); AST (SGOT) 14 U/L (11-34); Albumin 3.7 g/dL (3.1-4.5); Alkaline Phosphatase 62 U/L (40-110); Anion Gap 17 mmol/L (10-20); BUN (Urea Nitrogen) 9 mg/dL (9.8-20.1); Bilirubin, Total 0.3 mg/dL (0.3-1.2); Calc. Creatinine Clearance 0 mL/min (70-130); Calcium 9.1 mg/dL (7.8-10.44); Carbon Dioxide 19 mmol/L (23-31); Chloride 101 mmol/L (98-107); Globulin 3.3 g/dL (2.4-3.5); Glucose 209 mg/dL (83-110); Lipase 11 U/L (8-78); Magnesium 1.7 mg/dL (1.6-2.6); Potassium 4.0 mmol/L (3.5-5.1); Sodium 133 mmol/L (136-145)
[2025-02-15] MEDS ORDERED: diphenhydrAMINE 50 MG/ML VIAL ONE (05:52)
[2025-02-15] MEDS ORDERED: Metoclopramide HCl 10 MG (2 mL) VIAL ONE (05:52)
[2025-02-15 06:13] LABS: #Basophils 0.04 10x3/uL (0.0-0.2); #Eosinophils Less than 0.03 10x3/uL (0.0-0.7); #Monocytes 0.74 10x3/uL (0.11-0.59); #Neutrophils 12.18 10x3/uL (1.40-6.50); %Basophils 0.3 % (0.0-1.0); %Eosinophils 0.1 % (0.0-10.0); %Lymphocytes 8.4 % (21.0-51.0); %Monocytes 5.2 % (0.0-10.0); %Neutrophils 85.6 % (42.0-75.0); Hematocrit 36.8 % (36.0-47.0); Hemoglobin 11.9 g/dL (12.0-16.0); Mean Corpuscular Hemoglobin 29.3 pg (27.0-31.0); Mean Corpuscular Volume 90.6 fL (78.0-98.0); Platelet Count 425 10x3/uL (130-400); Red Blood Cell (RBC) Count 4.06 mill/uL (4.20-5.40); White Blood Cell (WBC) Count 14.23 10x3/uL (4.8-10.8)
[2025-02-15] MEDS ORDERED: Ondansetron PF 4 MG/2 ML Vial ONE (08:09)
[2025-02-15 08:48] LABS: Bacteria/HPF None Seen HPF (None Seen); CAUTI Indications for Culture Dysuria,urgency,freq; Glucose, Urine (Dipstick) 500 mg/dL (Negative); Leukocyte Negative Leu/uL (Negative); Protein, Urine (Dipstick) 10 mg/dL (Neg-Trace); RBC/HPF 0-3 HPF (0-3); Specific Gravity, Urine 1.012 (1.002-1.036); WBC/HPF 0-3 HPF (0-3)
[2025-02-15 08:56] LABS: Urine Culture Reflex No No
[2025-02-15] MEDS ORDERED: Bisacodyl 10 MG SUPP PR PRN (09:35)
[2025-02-15] MEDS ORDERED: Glucagon 1 MG/ML KIT IM PRN (10:49)
[2025-02-15] MEDS ORDERED: Dextrose 50% Abboject 50 ML SYRINGE SLOW IVP PRN (10:49)
[2025-02-15] MEDS: Pantoprazole 40 MG VIAL IVP SCH (11:13)
[2025-02-15 13:46] VITALS: BMI 31.0
[2025-02-15] MEDS: Ondansetron PF 4 MG/2 ML Vial IVP PRN (14:21)
[2025-02-16] MEDS ORDERED: Acetaminophen 325 MG TAB PO PRN (01:32)
[2025-02-16 07:12] LABS: #Basophils 0.03 10x3/uL (0.0-0.2); #Eosinophils 0.04 10x3/uL (0.0-0.7); #Monocytes 0.66 10x3/uL (0.11-0.59); #Neutrophils 6.86 10x3/uL (1.40-6.50); %Basophils 0.3 % (0.0-1.0); %Eosinophils 0.4 % (0.0-10.0); %Lymphocytes 20.0 % (21.0-51.0); %Monocytes 6.9 % (0.0-10.0); %Neutrophils 72.0 % (42.0-75.0); Hematocrit 37.0 % (36.0-47.0); Hemoglobin 11.7 g/dL (12.0-16.0); Mean Corpuscular Hemoglobin 29.3 pg (27.0-31.0); Mean Corpuscular Volume 92.7 fL (78.0-98.0); Platelet Count 414 10x3/uL (130-400); Red Blood Cell (RBC) Count 3.99 mill/uL (4.20-5.40); White Blood Cell (WBC) Count 9.54 10x3/uL (4.8-10.8)
[2025-02-16] MEDS: Pantoprazole 40 MG VIAL IVP SCH (10:23)
[2025-02-16] MEDS ORDERED: PROPOFOL 80 ML ONE (16:36)
[2025-02-16] MEDS ORDERED: hydrALAZINE 20 MG/ML VIAL ONE (17:28)
[2025-02-16] MEDS ORDERED: Ondansetron PF 4 MG/2 ML Vial ONE (17:31)
[2025-02-16] MEDS: Bisacodyl 10 MG SUPP PR SCH (20:55)
[2025-02-17 09:47] LABS: #Basophils 0.04 10x3/uL (0.0-0.2); #Eosinophils 0.03 10x3/uL (0.0-0.7); #Monocytes 0.88 10x3/uL (0.11-0.59); #Neutrophils 7.65 10x3/uL (1.40-6.50); %Basophils 0.4 % (0.0-1.0); %Eosinophils 0.3 % (0.0-10.0); %Lymphocytes 13.9 % (21.0-51.0); %Monocytes 8.8 % (0.0-10.0); %Neutrophils 76.3 % (42.0-75.0); Hematocrit 35.1 % (36.0-47.0); Hemoglobin 11.4 g/dL (12.0-16.0); Mean Corpuscular Hemoglobin 30.2 pg (27.0-31.0); Mean Corpuscular Volume 92.9 fL (78.0-98.0); Platelet Count 338 10x3/uL (130-400); Red Blood Cell (RBC) Count 3.78 mill/uL (4.20-5.40); White Blood Cell (WBC) Count 10.02 10x3/uL (4.8-10.8)
[2025-02-17 10:29] LABS: Anion Gap 13 mmol/L (10-20); BUN (Urea Nitrogen) 5 mg/dL (9.8-20.1); Calc. Creatinine Clearance 141 mL/min (70-130); Calcium 7.8 mg/dL (7.8-10.44); Carbon Dioxide 22 mmol/L (23-31); Chloride 99 mmol/L (98-107); Glucose 145 mg/dL (83-110); Potassium 3.3 mmol/L (3.5-5.1); Sodium 131 mmol/L (136-145)
[2025-02-17] MEDS: Metoclopramide HCl 10 MG (2 mL) VIAL IVP SCH (13:57)
[2025-02-17] MEDS: Mineral Oil ENEMA PR SCH (15:30)
[2025-02-18] MEDS ORDERED: Electrolyte Replacement Protocol 1 EACH FS SCH (08:45)
[2025-02-18 12:20] VITALS: BP 146/84; TEMP 98.1
== END 2025-02-18 13:25 | disposition home or self-care (01) | DRG 392 ==
LOC: ERS 04:25 → ERHOLD 09:18 → T4-B 09:18 → OBSVTOIN 02-16 15:34 → UNDODISIN 02-16 16:06
PROVIDERS: ADMIT Internal Medicine; ATTEND Family Medicine
PROC: 0DJ08ZZ Inspection of Upper Intestinal Tract, Via Natural or Artificial Opening Endoscopic (ICD-10-PCS; principal; 2025-02-16)
DX: K31.84 Gastroparesis (principal); E87.1 Hypo-osmolality and hyponatremia; R10.9 Unspecified abdominal pain; K59.00 Constipation, unspecified; Z79.899 Other long term (current) drug therapy; E11.9 Type 2 diabetes mellitus without complications; Z98.890 Other specified postprocedural states; Z98.51 Tubal ligation status; I10 Essential (primary) hypertension; M06.9 Rheumatoid arthritis, unspecified; K44.9 Diaphragmatic hernia without obstruction or gangrene; E03.9 Hypothyroidism, unspecified; K21.9 Gastro-esophageal reflux disease without esophagitis
CPT/HCPCS: 36415; 36416; 71045; 71275; 74177; 80048; 80053; 81001; 82010; 82805; 83605; 83690; 83735; 84484; 85025; 86308; 87040; 93005; 96361; 96365; 96368; 96374; 96375; 96376; G0378; J0360; J1200; J2470; J2543; J2550; J2704; J2765; J7030; Q9967